=== PATIENT | female | born 1990 | race Caucasian/White ===

== ENCOUNTER 2023-02-01 21:12 | Outpatient (REF) | payer OTHER, SELFPAY ==
[2023-02-07 20:08] LABS: Age Gdln ACOG Testing Note (.); HPV Aptima Negative (Negative); IGP, Aptima HPV, rfx 16/18,45 Note (.)
== END 2023-02-01 21:13 | disposition home or self-care (01) ==
LOC: LAB 21:12
PROVIDERS: Visit Provider Physician Assistant
DX: Z12.4 Encounter for screening for malignant neoplasm of cervix (principal)
CPT/HCPCS: G0145

== ENCOUNTER 2024-01-04 20:11 | Outpatient (REF) | payer OTHER, SELFPAY | END 2024-01-04 20:12 | disposition home or self-care (01) | LOC: LAB 20:11 | PROVIDERS: Visit Provider Physician Assistant | DX: Z01.419 Encounter for gynecological examination (general) (routine) without abnormal findings (principal) | CPT/HCPCS: 87624; 88175 ==

== ENCOUNTER 2025-01-07 19:08 | Outpatient (REF) | payer OTHER, SELFPAY ==
--- OUTSIDE RECORDS SUMMARY | 2023-05-03 12:01 | XMS_ITS | Continuity of Care Document ---
Author Organization [facility] Address [address] [place] [address] Phone Care Team Providers Care Hospice Patient Care Secretary Name Role Phone Noel MSN, [employer], MARIO, Daphne Unavailable Unavailable Allergies, Adverse Reactions, Alerts Substance Reaction Status Criticality HYDROCODONE BITARTRATE HivesHives Active No In formation HYDROCODONE BITARTRATE Active No In formation Procedures Procedure Date TB INTRADERMAL TEST PREV VISIT, NEW, AGE 18-39 Bp scrn perf rec interval DIAST BP < 80 MM HG SYST BP < 130 MM HG MED LIST DOCD IN [facility] RVW MEDS BY RX/DR IN [facility] Advance Directives Directive Yes / No Effective Date File Name No Information Encounters Encounter Description Practice Location Reason(s) For Visit Diagnoses Date Provider Providers Copied on Encounter [facility], [address] [place], [place], [id number], [place] tel:[phone] [facility] No Information 3 Noel Serna. [address] [place], [address], [place]. tel:[phone] [facility], [address], [place], [id number], [place] tel:[phone] [facility] Nonspecific reaction to tuberculin skin test without active tuberculosis 3 Radha Moyer. [address], [place], [id number] , [place]. tel:[phone] PREV VISIT, NEW, AGE 18-39 [facility], [address], [place], [id number], [place] tel:[phone] [facility] School Physical (chief complaint) Encounter for general adult medical examination without abnormal findingsNeed for hepatitis C screening testScreening for diabetes mellitusScreening for endocrine disorderScreening for HIV (human immunodeficiency virus)Screening for lipid disordersBody mass index [BMI] 36.0-36.9, adult 3 Noel Serna. [address] [place], [address], [place]. tel:[phone] Family History Family Member Type Diagnosis Age At Onset Maternal grandmother Problem Thyroid disorder Father Problem Diabetes mellitus Payers Payer name Insurance type Covered democrat ID Authorrizwana emily(s) [facility] Medicaid [facility] [id number] Social History Type Description Quantity Date Captured Comments Alcohol Use Details Unknown Caffeine Use Details Unknown Tobacco Use Status No Information Smoking Status No Information Sex Female Sexual Orientation Straight or heterosexual Gender Identity Female Chief Complaint And Reason For Visit No Information Reason For Referral Reason For Referral No Information Plan Of Treatment Date Type Action Status Goal Tdap. Due on due Goal Influenza vaccine. Due on due Goal Depression screening. Due on due Goal HPV. Due on due Goal Unhealthy drug use screening . Due on due Goal Hepatitis C screening. Due o n due Goal RLP. Due on due Goal PRAPARE ASSESSMENT. Due on due Goal Tdap Vaccine. Due on 2022 due Goal Hepatitis C screening. Due o n due Goal Hep A. Due on du e Goal PRAPARE ASSESSMENT. Due on D due Goal Tdap Vaccine. Due on 2022 due Goal HPV. Due on due Goal RLP. Due on due Goal Unhealthy drug use screening . Due on due Goal Depression screening. Due on due Goal Influenza vaccine. Due on due Goal Tdap. Due on due Goal RLP. Due on due Goal PRAPARE ASSESSMENT. Due on D due Goal Hep A. Due on du e Goal HPV. Due on due Goal Tdap Vaccine. Due on 2022 due Goal Influenza vaccine. Due on due Goal Hepatitis C screening. Due o n due Goal Depression screening. Due on due Goal Tdap. Due on due Goal Unhealthy drug use screening . Due on due Goal Dietary management education , guidance, and counseling completed History Of Present Illness Encounter Date Complaint History Of Prese nt Illness School Physical Patient here for school physical. 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 Patient brought form to fill out. TB skin test step 1 administered in R forearm // ROXANA Rossi.Above noted.Patient is a 32-year-old female with unremarkable medical history. She is here today for a school physical. She typically sees Juani Phelan) for PCP but was unable to get into her office in a timely manner. She has two children (4 year old and 8 months old). 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 She states she did not keep up with the hours required to keep her GRAPHIC ARTS TECHNICIAN license so she has to go back to school to get recertified. She denies any issues or concerns today. She denies any concerns regarding completed schooling or required job duties. Surgical history: , tubal ligationFamily history: Father has diabetes. Maternal grandmother as thyroid disease./ Levy Cohen APRN-RETAIL SERVICE SPECIALIST Functional Status Date Functional Assessmen t No Information Instructions Date Instruction Additional Infor mation Giving encouragement to exercise Related to Body mass index [BMI] 36.0-36.9, adult Dietary management e ducation, guidance, and counseling Related to Body mass index [BMI] 36.0-36.9, adult Assessments Type Assessment Date No Information Patient Care Teams Name Effective Dates (start - stop) Status Members No Information
--- OUTSIDE RECORDS SUMMARY | 2025-01-07 14:00 | XMS_ITS | Encounter Summary ---
Author Organization [facility] Address [address] [place] [address] Care Team Providers Care Universal Grinder Set Up Operator Name Role Phone Unavailable Primary Care Provider Unavailabl e Reason for Visit * Reason Comments Well Women Visit Encounter Details Date Type Department Care Team (Late st Contact Info) Description 01/07/2025 2:00 PM EDT Office Visit [facility] [address] [place] [id number] Madan Jauregui DO [address] [place] [address] Well woman exam with routine gynecological exam Social History Tobacco Use Types Packs/Day Years Used Date Smoking Tobacco: Never Smokeless Tobacco: Never Alcohol Use Standard Drinks/Week Comments Not Currently 0 (1 standard drink = 0.6 oz pur e alcohol) occasional alcohol use Comments No Sex and Gender Information Value Date Recorded Sex Assigned at Not on file Legal Sex Female 11:48 PM EDT Gender Identity Not on file Sexual Orientation Not on file documented as of this encounter Last Filed Vital Signs Vital Sign Reading Time Taken Comments Blood Pressure 120/78 01/07/2025 2:06 PM EDT Pulse - - Temperature - - Respiratory Rate - - Oxygen Saturation - - Inhaled Oxygen Concentration - - Weight 93.8 kg (206 lb 12.8 oz) 01/07/2025 2:06 PM EDT Height - - Body Mass Index 36.63 01/04/2024 3:08 PM EDT documented in this encounter Progress Notes * Neelam Vázquez LPN - 01/07/2025 2:00 PM EDT Reason for Appointment: Patient ID: Andrea Triana is a 34 y.o. female who presents for Well Women Visit Patient presents today for Annual Exam. MEDICATIONS No current outpatient medications ALLERGIES Allergies Allergen Reactions Hydrocodone-Acetaminophen Hives Other Reaction(s): Hives, Unknown PROBLEMS Active Ambulatory Problems Diagnosis Date Noted No Active Ambulatory Problems Resolved Ambulatory Problems Diagnosis Date Noted No Resolved Ambulatory Problems Past Medical History: Diagnosis Date Nonsmoker PCOS (polycystic ovarian syndrome) HISTORY PAST MEDICAL HISTORY SOCIAL HISTORY Past Medical History: Diagnosis Date Nonsmoker PCOS (polycystic ovarian syndrome) Social History Tobacco Use Smoking status: Never Smokeless tobacco: Never Substance Use Topics Alcohol use: Not Currently Comment: occasional alcohol use Drug use: Never FAMILY HISTORY Family History Problem Relation Name Age of Onset Psoriasis Other Family history SURGICAL HISTORY Past Surgical History: Procedure Laterality Date SECTION, LOW TRANSVERSE 07/20/2022 PAP SMEAR 10/28/2021 negative SALPINGECTOMY Bilateral 07/20/2022 REVIEW OF SYSTEMS Review of Systems: Review of Systems Constitutional: Negative. HENT: Negative. Eyes: Negative. Respiratory: Negative. Cardiovascular: Negative. Gastrointestinal: Negative. Genitourinary: Negative. Musculoskeletal: Negative. Skin: Negative. Neurological: Negative. All other systems reviewed and are negative. Hematological: Negative. Endocrine: Negative. Allergic/Immunologic: Negative. OBJECTIVE Objective: Physical Exam Constitutional: Appearance: Normal appearance. She is well-developed. Genitourinary: Vulva normal. Cardiovascular: Rate and Rhythm: Normal rate and regular rhythm. Pulmonary: Effort: Pulmonary effort is normal. Breath sounds: Normal breath sounds. Abdominal: General: Bowel sounds are normal. There is no distension. Palpations: Abdomen is soft. Tenderness: There is no abdominal tenderness. There is no guarding or rebound. Musculoskeletal: General: No swelling. Normal range of motion. Right lower leg: No edema. Left lower leg: No edema. Neurological: Mental Status: She is alert and oriented to person, place, and time. Skin: General: Skin is warm and dry. Psychiatric: Mood and Affect: Mood normal. Behavior: Behavior normal. Vitals and nursing note reviewed. Exam conducted with a logging equipment mechanic present. Vitals: Estimated body mass index is 36.63 kg/m?? as calculated from the following: Height as of 01/04/24: 5' 3 . Weight as of this encounter: 206 lb 12.8 oz. BP: 120/78 Patient's last menstrual period was 12/29/2024. ASSESSMENT & PLAN ICD-10-CM 1. Well woman exam with routine gynecological exam Z01.419 Pap Smear HPV DNA probe, amplified Orders Placed This Encounter Procedures HPV DNA probe, amplified Annual Wellness Exam: Patient presents today for routine annual exam. Patient states she has no current complaints. Patients vitals were reviewed and within normal limits. Growth and development is noted to be appropriate for age. Menstrual history is noted to be regular with no concerns reported. No mental health concerns was expressed. Pap Smear: Speculum was inserted into the vagina and pap was obtained without difficulty. HPV testing was performed per age guideline. Patient was advised that pap results could take anywhere from 7 to 10 days to receive and our office will reach out to the patient with those once we have them. Patient can also view results via [employer]. I reinforced importance of condom use for STI prevention. Patient declined cultures to be performed with today's visit. Breast Exam: Upon examination, clinical breast exam was noted to be normal. Patient was counseled on breast self-awareness, including the importance of knowing what is normal for her own breasts and promptly reporting any changes such as new lumps, skin dimpling, nipple discharge, or pain. Screening mammogram recommended annually beginning at age 40 or earlier if risk factors are present. Discussed signs and symptoms of breast cancer and when to seek medical attention. Answered all patient questions. Contraceptive Counseling (if applicable): Patient is currently using tubal as a form of contraceptive. Follow Up: Patient is to return to our office in one year for annual exam unless needed otherwise. Documented by Neelam Vázquez LPN on behalf of: Madan Jauregui DO documented in this encounter Plan of Treatment Upcoming Encounters Date Type Department Care Team (Late st Contact Info) Description 01/13/2026 8:30 AM EDT Procedure Visit [facility] [address] [place] [id number] Madan Jauregui DO [address] [place] [address] Scheduled Orders Name Type Priority Associated Diagnoses Orde r Schedule Pap Smear Pathology and Cytology Routine Well woman exam with routine gynecological exam Ordered: 01/07/2025 HPV DNA probe, amplified Microbiology Routine Well woman exam with routine gynecological exam Ordered: 01/07/2025 documented as of this encounter Visit Diagnoses Diagnosis Well woman exam with routine gynecological exam Routine gynecological examination documented in this encounter
--- OUTSIDE RECORDS SUMMARY | 2025-01-07 19:11 | XMS_ITS | Encounter Summary ---
Author Organization [facility] Address [address] [place] [address] Care Team Providers Care Scout Sniper Name Role Phone Unavailable Primary Care Provider Unavailabl e Encounter Details Date Type Department Care Team (Late Contact Info) Description 01/07/2025 Bamboo flowsheet [facility] [address] [place] [address] Madan Jauregui DO [address], [place] [address] Social History Tobacco Use Types Packs/Day Years [...] on file documented as of this encounter Plan of Treatment Upcoming Encounters Date Type Department Care Team (Late Contact Info) Description 01/13/2026 8:30 AM EDT Procedure Visit [facility] [address] [place] [address] Madan Jauregui DO [address], [id number] documented as of this encounter Visit Diagnoses Not on filedocumented in this encounter
--- OUTSIDE RECORDS SUMMARY | 2025-01-07 19:11 | XMS_ITS | Encounter Summary ---
Author Organization [facility] Address [address] [place] [address] Care Team Providers Care Carpet Cutter Name Role Phone Unavailable Primary Care Provider Unavailabl e Encounter Details Date Type Department Care Team (Late Contact Info) Description 12/31/2024 Orders Only [facility] [address] [place] [phone] Mary Crews LPN [address] [facility] [place] [address] Social History Tobacco Use Types Packs/Day Years [...] 8:30 AM EDT Procedure Visit [facility] [address] [place] [address] Madan Jauregui DO [address] [facility] [address] [place], [place] [id number] documented as of this encounter Procedures Procedure Name Priority Date/Time Associated Diagnosis Comments PAP SMEAR Routine 01/04/2024 12:00 AM EDT documented in this encounter Results * (ABNORMAL) Pap Smear (01/04/2024 12:00 AM EDT) Swab Cervical swab / Unknown us [facility] CYTOLOGY ORDERABLES Final Result EXTERNAL LAB documented in this encounter Visit Diagnoses Not on filedocumented in this encounter
--- OUTSIDE RECORDS SUMMARY | 2025-01-07 19:11 | XMS_ITS | Encounter Summary ---
Author Organization [facility] Address [address] [place] [address] Care Team Providers Care Store Administrative Assistant Name Role Phone Unavailable Primary Care Provider Unavailabl e Encounter Details Date Type Department Care Team (Late Contact Info) Description 01/31/2023 Abstract [facility] [address] [phone] Lucero Pollack PA [address] [facility] [address] [place], [facility] Social History Tobacco Use Types Packs/Day Years Used Date Smoking Tobacco: Never Smokeless Tobacco: Never Alcohol Use Standard Drinks/Week Comments Yes 0 (1 standard drink = 0.6 oz pur e alcohol) occasional alcohol use Comments Unknown Sex and Gender Information Value Date Recorded Sex Assigned at Not on file Legal Sex Female 11:48 PM EDT Gender Identity Not on file Sexual Orientation Not on file documented as of this encounter Plan of Treatment Upcoming Encounters Date Type Department Care Team (Late Contact Info) Description 01/13/2026 8:30 AM EDT Procedure Visit [facility] [address] [address] Madan Jauregui DO [address] [facility] [address] [place], [place] [id number] documented as of this encounter Visit Diagnoses Not on filedocumented in this encounter
--- OUTSIDE RECORDS SUMMARY | 2025-01-07 19:11 | XMS_ITS | Clinical Summary ---
Author Organization [facility] Address [address] [place] [address] Care Team Providers Care Associate Media Planner Name Role Phone Unavailable Primary Care Provider Unavailabl e Allergies Active Allergy Reactions Criticality Noted Date Comments Hydrocodone-Acetaminophen Hives 02/01/2023 Other Reaction(s): Hives, Unknown Medications No known medications Encounters Date Type Department Care Team Description 01/07/2025 2:00 PM EDT Office Visit [facility] [address] [place], [phone] Madan Jauregui, Well woman exam with routine gynecological exam 01/07/2025 Bamboo flowsheet [facility] [place] [address] Madan Jauregui DO 12/31/2024 Orders Only [facility] [address] [place], [place] [address] [place] [address] Mary Crews LPN from Last 3 Months Family History Medical History Relation Name Comments Psoriasis Other Family history Relation Name Status Comments Brother (2) Father Alive Mother Alive Other Family history Sister (3) Social History Tobacco Use Types Packs/Day Years Used Date Smoking Tobacco: Never Smokeless Tobacco: Never Tobacco Cessation:Counseling Given: Not Answered Alcohol Use Standard Drinks/Week Comments Not Currently 0 (1 standard drink = 0.6 oz pur e alcohol) occasional alcohol use Comments No Sex and Gender Information Value Date Recorded Sex Assigned at Not on file Legal Sex Female 11:48 PM EDT Gender Identity Not on file Sexual Orientation Not on file Last Filed Vital Signs Vital Sign Reading Time Taken Comments Blood Pressure 120/78 01/07/2025 2:06 PM EDT Pulse - - Temperature - - Respiratory Rate - - Oxygen Saturation - - Inhaled Oxygen Concentration - - Weight 93.8 kg (206 lb 12.8 oz) 01/07/2025 2:06 PM EDT Height 160 cm (5' 3 ) 01/04/2024 3:08 PM EDT Body Mass Index 36.63 01/04/2024 3:08 PM EDT Plan of Treatment Upcoming Encounters Date Type Department Care Team (Late st Contact Info) Description 01/13/2026 8:30 AM EDT Procedure Visit [facility] [address] [place] [address] Madan Jauregui DO [address] [place] [address] Insurance [employer]
--- OUTSIDE RECORDS SUMMARY | 2025-01-07 19:17 | XMS_ITS | CCD ---
Author Organization [facility] Care Team Providers Care Engineering Clerk Name Role Phone Paul Thornton Unavailable CLEMENCIA ., LUCERO Attending Unavailable CLEMENCIA ., LUCERO Admitting Unavailable HOPKINS ., DR DMITRIY Walden Primary Care Unavailable HOPKINS ., DR DMITRIY Walden Primary Care Unavailable REINECK, DR MIKE [place] Consulting Unavailabl e TASNEEM, DR MIKE [place] Admitting Unavailabl e REINJEZ, DR MIKE [place] Attending Unavailabl ABHINAV Browne Consulting Unavailable BENNY BRYAN Consulting Unavailable HOPKINS ., DR DMITRIY Walden Primary Care Unavailable JUVENTINO ., DR LUNDBERG Consulting Unavailable JUVENTINO ., DR LUNDBERG Attending Unavailable JUVENTINO ., DR LUNDBERG Admitting Unavailable JUVENTINO ., DR LUNDBERG Procedure Practitioner Unavail ROSA Benitez Consulting Unavailable SHADY TIAN Consulting Unavailable JUVENTINO ., DR LUNDBERG Consulting Unavailable JUVENTINO ., DR LUNDBERG Admitting Unavailable HOPKINS ., DR DMITRIY Walden Primary Care Unavailable JUVENTINO ., DR LUNDBERG Attending Unavailable CLEMENCIA ., LUCERO Attending Unavailable CLEMENCIA ., LUCERO Admitting Unavailable HOPKINS ., DR DMITRIY Walden Primary Care Unavailable DINA ONOFRE V Consulting Unavailable CLEMENCIA ., LUCERO Consulting Unavailable HOPKINS ., DR DMITRIY Walden Primary Care Unavailable JUVENTINO ., DR LUNDBERG Attending Unavailable JUVENTINO ., DR LUNDBERG Admitting Unavailable JUVENTINO ., DR LUNDBERG Admitting Unavailable HOPKINS ., DR DMITRIY Walden Primary Care Unavailable JUVENTINO ., DR LUNDBERG Attending Unavailable JUVENTINO ., DR LUNDBERG Consulting Unavailable JUVENTINO ., DR LUNDBERG Admitting Unavailable JUVENTINO ., DR LUNDBERG Attending Unavailable HOPKINS ., DR DMITRIY Walden Primary Care Unavailable HOPKINS ., DR DMITRIY Walden Primary Care Unavailable JUVENTINO ., DR LUNDBERG Attending Unavailable JUVENTINO ., DR LUNDBERG Admitting Unavailable WEST, DINA Curran Consulting Unavailable JUVENTINO ., DR LUNDBERG Consulting Unavailable CLEMENCIA ., LUCERO Consulting Unavailable CLEMENCIA ., LUCERO Admitting Unavailable CLEMENCIA ., LUCERO Attending Unavailable HOPKINS ., DR DMITRIY Walden Primary Care Unavailable JUVENTINO ., DR LUNDBERG Attending Unavailable JUVENTINO ., DR LUNDBERG Consulting Unavailable JUVENTINO ., DR LUNDBERG Admitting Unavailable HOPKINS ., DR DMITRIY Walden Primary Care Unavailable HOPKINS ., DR DMITRIY Walden Primary Care Unavailable JUVENTINO ., DR LUNDBERG Consulting Unavailable JUVENTINO ., DR LUNDBERG Admitting Unavailable JUVENTINO ., DR LUNDBERG Attending Unavailable HOPKINS ., DR DMITRIY Walden Primary Care Unavailable JUVENTINO ., DR LUNDBERG Attending Unavailable JUVENTINO ., DR LUNDBERG Admitting Unavailable WESTDINA V Consulting Unavailable JUVENTINO ., DR LUNDBERG Consulting Unavailable HOPKINS ., DR DMITRIY Walden Primary Care Unavailable JUVENTINO ., DR LUNDBERG Attending Unavailable JUVENTINO ., DR LUNDBERG Consulting Unavailable JUVENTINO ., DR LUNDBERG Admitting Unavailable MORGAN, ROSA Admitting Unavailable MORGANROSA Attending Unavailable HOPKINS ., DR DMITRIY Walden Primary Care Unavailable MORGANROSA Consulting Unavailable HOPKINS ., DR DMITRIY Walden Primary Care Unavailable JUVENTINO ., DR LUNDBERG Attending Unavailable JUVENTINO ., DR LUNDBERG Consulting Unavailable JUVENTINO ., DR LUNDBERG Admitting Unavailable JUVENTINO ., DR LUNDBERG Consulting Unavailable JUVENTINO ., DR LUNDBERG Admitting Unavailable JUVENTINO ., DR LUNDBERG Attending Unavailable HOPKINS ., DR DMITRIY Walden Primary Care Unavailable HOPKINS ., DR DMITRIY Walden Primary Care Unavailable JUVENTINO ., DR LUNDBERG Attending Unavailable JUVENTINO ., DR LUNDBERG Consulting Unavailable JUVENTINO ., DR LUNDBERG Admitting Unavailable JUVENTINO ., DR LUNDBERG Admitting Unavailable HOPKINS ., DR DMITRIY Walden Primary Care Unavailable JUVENTINO ., DR LUNDBERG Attending Unavailable DINA ONOFRE V Consulting Unavailable JUVENTINO ., DR LUNDBERG Consulting Unavailable HOPKINS ., DR DMITRIY Walden Primary Care Unavailable JUVENTINO ., DR ULNDBERG Attending Unavailable JUVENTINO ., DR LUNDBERG Admitting Unavailable DINA ONOFRE V Consulting Unavailable JUVENTINO ., DR LUNDBERG Consulting Unavailable HOPKINS ., DR DMITRIY Walden Primary Care Unavailable JUVENTINO ., DR LUNDBERG Attending Unavailable JUVENTINO ., DR LUNDBERG Consulting Unavailable JUVENTINO ., DR LUNDBERG Admitting Unavailable HOPKINS ., DR DMITRIY Walden Primary Care Unavailable JUVENTINO ., DR LUNDBERG Attending Unavailable JUVENTINO ., DR LUNDBERG Consulting Unavailable JUVENTINO ., DR LUNDBERG Admitting Unavailable JUVENTINO ., DR LUNDBERG Consulting Unavailable HOPKINS ., DR DMITRIY Walden Primary Care Unavailable JUVENTINO ., DR LUNDBERG Attending Unavailable JUVENTINO ., DR LUNDBERG Admitting Unavailable SAIRA ERICKSON Consulting Unavailable JUVENTINO ., DR LUNDBERG Admitting Unavailable DINA ONOFRE V Consulting Unavailable JUVENTINO ., DR LUNDBERG Attending Unavailable HOPKINS ., DR DMITRIY Walden Primary Care Unavailable JUVENTINO ., DR LUNDBERG Consulting Unavailable Cisco, Juani L Primary Care Physician LUCERO KHANNA Attending Unavailable Unavailable Primary Care Provider Unavailabl e Cisco, MANAGER GENERAL Juani L Attending Unavailable Cisco, MANAGER GENERAL Juani L Attending Unavailable Cisco, MANAGER GENERAL Juani L Attending Unavailable Cisco, MANAGER GENERAL Juani L Attending Unavailable Cisco, MANAGER GENERAL Juani L Attending Unavailable Allergies Allergy Classification Reported Allergen(s) Allergy Type Date of Onset Reaction(s) Facility (5 sources) Acetaminophen / HYDROcodone; Translations: [Vicodin] Drug Allergy 5 Weal (disorder) [facility] Medications Current Medications Medication Drug Class(es) Dates Sig (Normalized) Sig (Original) benzonatate 100 mg oral capsule (1 source) Non-narcotic Antitussive Start: 12-27-2022 End: 01-03-2023 take 1 capsule by mouth three times daily Tessalon 100 mg Cap 100 mg = 1 cap(s), Oral, TID, X 7 day(s), # 21 cap(s), Refills(s) 0, Pharmacy: [facility], 160, cm, 12/27/22 12:16:00 EDT, Height/Length Dosing, 91, kg, 12/27/22 12:16:00 EDT, Weight Dosing Start Date: 12/27/22 Stop Date: 01/03/23 Status: Ordered predniSONE 20 mg oral tablet (1 source) Start: 12-27-2022 End: 01-03-2023 take 1 tablet by mouth once daily predniSONE 20 mg Tab 20 mg = 1 tab(s), Oral, Daily, X 7 day(s), # 7 tab(s), Refills(s) 0, Pharmacy: [facility], 160, cm, 12/27/22 12:16:00 EDT, Height/Length Dosing, 91, kg, 12/27/22 12:16:00 EDT, Weight Dosing Start Date: 12/27/22 Stop Date: 01/03/23 Status: Ordered Problems Active Problems Problem Classification Problem Date Documented Date Episodic/Chronic Chronic obstructive pulmonary disease and bronchiectasis (1 source) Bronchitis; Translations: [Bronchitis, not specified as acute or chronic] Onset: 12-27-2022 Episodic Contraceptive and procreative management (1 source) Encounter for sterilization; Translations: [ENCOUNTER FOR STERILIZATION] Onset: 08-08-2022 Episodic Diabetes or abnormal glucose tolerance complicating ; childbirth; or the puerperium (1 source) Pre-existing type 2 diabetes mellitus, in , unspecified trimester; Translations: [PRE-EXIST TYPE 2 DM PREG UNS TRI] Onset: 07-13-2022 Chronic Diabetes or abnormal glucose tolerance complicating ; childbirth; or the puerperium (7 sources) Gestational diabetes mellitus in , diet controlled; Translations: [Gestational diabetes mellitus in childbirth, diet controlled] Onset: 07-15-2022 Episodic Immunizations and screening for infectious disease (6 sources) Contact with and (suspected) exposure to infections with a predominantly sexual mode of transmission; Translations: [Encounter for screening for human papillomavirus (HPV)] Onset: 10-30-2021 Episodic Menstrual disorders (5 sources) Irregular menstruation, unspecified; Translations: [IRREGULAR MENSTRUATION UNSPECIFIED] Onset: 12-20-2021 Chronic Other complications of (4 sources) Other specified related conditions, unspecified trimester; Translations: [OTH SPEC PREG RELATED COND UNS TRI] Onset: 07-11-2022 Episodic Other female genital disorders (1 source) Other specified noninflammatory disorders of vagina; Translations: [OTH SPEC NONINFLAMMATORY D/O VAGINA] Onset: 07-14-2022 Episodic Other liver diseases (2 sources) Steatosis of liver; Translations: [Fatty (change of) liver, not elsewhere classified] Chronic Other liver diseases (2 sources) Fatty (change of) liver, not elsewhere classified; Translations: [FATTY CHANGE LIVER NEC] Onset: 11-18-2021 Resolved: 11-18-2021 Chronic Other nutritional; endocrine; and metabolic disorders (1 source) Obese class II; Translations: [Body mass index (BMI) 35.0-35.9, adult] Onset: 12-27-2022 Chronic Other and delivery including normal (10 sources) Single live ; Translations: [ state, incidental] Onset: 12-31-2021 Episodic Residual codes; unclassified (1 source) Personal history of other specified conditions; Translations: [PERSONAL HISTORY OTH SPEC CONDITION] Onset: 08-08-2022 Episodic Residual codes; unclassified (1 source) 37 weeks gestation of ; Translations: [37 WEEKS GESTATION OF ] Onset: 08-08-2022 Episodic Residual codes; unclassified (1 source) 36 weeks gestation of ; Translations: [36 WEEKS GESTATION OF ] Onset: 07-15-2022 Episodic Unclassified (1 source) PT NONCOMP OTH MED TX/REG UNS REASN; Translations: [PT NONCOMP OTH MED TX/REG UNS REASN] Onset: 08-08-2022 Past or Other Problems Problem Classification Problem Date Documented Da te Episodic/Chronic Abdominal pain (1 source) Unspecified abdominal pain Onset: 11-18-2021 Resolved: 11-18-2021 Episodic Diabetes mellitus without complication (8 sources) Other abnormal glucose; Translations: [Acetonuria] Onset: 02-19-2022 Episodic Hemorrhage during ; abruptio placenta; placenta previa (4 sources) Hemorrhage in early , unspecified; Translations: [HEMORRHAGE EARLY UNS] Onset: 02-08-2022 Episodic Nausea and vomiting (1 source) Nausea Onset: 11-18-2021 Resolved: 11-18-2021 Episodic Other complications of (4 sources) Decreased movements, third trimester, not applicable or unspecified; Translations: [DECR MOVEMENTS 3RD TRI NA/UNS] Onset: 06-28-2022 Episodic Other complications of (1 source) Diseases of the digestive system complicating , first trimester; Translations: [DZ DIGESTIVE SYS COMP PREG 1ST TRI] Onset: 03-16-2022 Episodic Other screening for suspected conditions (not mental disorders or infectious disease) (13 sources) Encounter for other specified screening; Translations: [Encounter for screening, unspecified] Onset: 10-28-2021 Episodic Residual codes; unclassified (1 source) 34 weeks gestation of ; Translations: [34 WEEKS GESTATION OF ] Onset: 07-01-2022 Episodic Residual codes; unclassified (1 source) 8 weeks gestation of ; Translations: [8 WEEKS GESTATION OF ] Onset: 12-31-2021 Episodic Results Test Name Value Interpretation Reference Range Facility [facility] Medicine Office/Clini c Noteon 10-07-2024 [facility] Medicine Office/Clinic Note [facility] Medicine Office/Clinic Note HPI Staff Patient is here for sore throat started yesterday, when she swallows she feels like she is swallowing glass No fever coughing yellowish green mucous OTC tried Ibuprofen, cough drops... cough drops helped History of Present Illness pt presents today with severe sore throat Review of Systems PHQ Score Initial Depression Screen Score: 0 SCORE Physical Exam Vitals & Measurements T: 36.7 ???C(Oral) HR: 104(Peripheral) RR: 20 BP: 116/78 SpO2: 98% HT: 159.0 cm HT: 63 in WT: 90.8 kg WT: 200.179 lb BMI: 35.92 General: alert, no acute distress ENMT: oral mucosa moist, yes pharyngeal erythema or exudate Cardiovascular: regular rate and rhythm, normal peripheral perfusion Respiratory: Lungs CTA, respirations non labored Extremities: no deformity, no trauma Neurological: oriented x 4, LOC appropriate for age, CN II-XII intact, motor strength equal & normal bilaterally, speech normal Assessment/Plan 1. Strep pharyngitis (J02.0: Streptococcal pharyngitis) rapid strep positive in office today. will send in antibiotics. pt will remain off of work until Monday. take Motrin for the pain. Ordered: amoxicillin, 500 mg = 1 tab(s), Oral, TID, X 7 day(s), # 21 tab(s), Refills(s) 0, Pharmacy: [facility], 159, cm, 10/07/24 14:07:00 EDT, Height/Length Dosing, 90.8, kg, 10/07/24 14:07:00 EDT, Weight Dosing 2. Sore throat (J02.9: Acute pharyngitis, unspecified) rapid strep in office is + Ordered: amoxicillin, 500 mg = 1 tab(s), Oral, TID, X 7 day(s), # 21 tab(s), Refills(s) 0, Pharmacy: [facility], 159, cm, 10/07/24 14:07:00 EDT, Height/Length Dosing, 90.8, kg, 10/07/24 14:07:00 EDT, Weight Dosing Rapid Strep POC 53896 3. Non-smoker (Z78.9: Other specified health status) continue not smokiing Ordered: amoxicillin, 500 mg = 1 tab(s), Oral, TID, X 7 day(s), # 21 tab(s), Refills(s) 0, Pharmacy: [facility], 159, cm, 10/07/24 14:07:00 EDT, Height/Length Dosing, 90.8, kg, 10/07/24 14:07:00 EDT, Weight Dosing 4. BMI 35.0-35.9,adult (Z68.35: Body mass index [BMI] 35.0-35.9, adult) BMI education Ordered: amoxicillin, 500 mg = 1 tab(s), Oral, TID, X 7 day(s), # 21 tab(s), Refills(s) 0, Pharmacy: [facility], 159, cm, 10/07/24 14:07:00 EDT, Height/Length Dosing, 90.8, kg, 10/07/24 14:07:00 EDT, Weight Dosing 5. Class 2 severe obesity due to excess calories with serious comorbidity and body mass index (BMI) of 35.0 to 35.9 in adult (E66.812: Obesity, class 2) see above Ordered: amoxicillin, 500 mg = 1 tab(s), Oral, TID, X 7 day(s), # 21 tab(s), Refills(s) 0, Pharmacy: [facility], 159, cm, 10/07/24 14:07:00 EDT, Height/Length Dosing, 90.8, kg, 10/07/24 14:07:00 EDT, Weight Dosing Follow-up No qualifying data available Problem List/Past Medical History Ongoing Adult BMI 36.0-36.9 kg/sq m BMI 35.0-35.9,adult Cerumen impaction Encounter for weight management Encounter to establish care Nonsmoker Obesity (BMI 30-39.9) PCOS (polycystic ovarian syndrome) Pre-employment examination Sensation of plugged ear on right side Sore throat Strep pharyngitis Weight gain Wellness examination Historical No qualifying data Procedure/Surgical History delivery, Salpingectomy. Medications amoxicillin 500 mg oral tablet, 500 mg= 1 tab(s), Oral, TID Allergies Vicodin (Hives) Social History Alcohol Never., 09/25/2024 Substance Abuse Never., 09/25/2024 Tobacco Never (less than 100 in lifetime) Tobacco Use:. Never Smokeless Tobacco Use:. Household tobacco concerns: No. Yes, 10/07/2024 Family History Acute myocardial infarction: Grandparent. Primary malignant neoplasm of colon: Father and Grandparent. Immunizations Vaccine Date Status Comments influenza virus vaccine, inactivated 05/12/2023 Given SARS-CoV-2 mRNA (tozinameran 5y-11y) vac - Not Given Postpone due to refusal influenza virus vaccine, inactivated 06/01/2022 Recorded influenza virus vaccine, inactivated 03/24/2022 Recorded Lab Results Ambulatory Point of Care Results Rapid Strep POC Result: Positive (10/07/24 14:18:00) [facility] Comment on above: Result Comment: Elec tronically Signed By: Juani Guerrier\.br\Date and Time Signed: 10/07/24 14:33 EDT Provider Letteron 10-07-2024 Provider Letter Provider Letter October 07, 2024 KAL TRIANA [address] [place] [id number] : 1990 To Whom It May Concern, Please excuse above patient from work. Date of Illness: From: 10/07/2024 To: 10/08/2024 May Return to Work On: 10/09/2024 Sincerely, FRANKI Terry [address] [address] [facility] Ambulatory Visit Summaryon 0 09-25-2024 Ambulatory Visit Summary Ambulatory Visit Summary KAL TRIANA :1990 Visit Date:09/25/2024 Ambulatory Visit Instructions Your Diagnosis Sensation of plugged ear on right side Cerumen impaction BMI 35.0-35.9,adult Obesity (BMI 30-39.9) Nonsmoker Your Care Team Attending Physician - Juani Guerrier Primary Care Physician - Juani Guerrier Procedures Performed delivery, Salpingectomy. Discharge Vitals Temperature (Tympanic) 36.9 ???C Heart Rate (Peripheral) 90 Respiratory Rate 18 Blood Pressure 124/82 Height 159 cm Height 63 in Weight 90.9 kg Weight 200.4 lb BMI 35.96 What to do next Scheduled Follow-Up Appointments Monday. 2024 1:40 PM EDT Where: [address] [address]- Allergies Vicodin (Hives) Problems Ongoing - Any problem that you are currently receiving treatment for. Adult BMI 36.0-36.9 kg/sq m BMI 35.0-35.9,adult Cerumen impaction Encounter for weight management Encounter to establish care Nonsmoker Obesity (BMI 30-39.9) PCOS (polycystic ovarian syndrome) Pre-employment examination Sensation of plugged ear on right side Sore throat Strep pharyngitis Weight gain Wellness examination Patient Survey You may receive a survey via text or e-mail asking about your office visit. Please share your experience with us by completing your survey. We appreciate your feedback and thank you for choosing us for your care. [facility] Medicine Office/Clini c Noteon 09-25-2024 Family Medicine Office/Clinic Note Family Medicine Office/Clinic Note Chief Complaint Acute Visit HPI Staff Pt presents today for acute visit. Rt ear feels plugged, at times painful. Usually after laying on her side, or any kind of pressure to Rt ear. Has been intermittent for the past 2wks. Review of Systems PHQ Score Initial Depression Screen Score: 0 SCORE Physical Exam Vitals & Measurements T: 36.9 ???C(Tympanic) HR: 90(Peripheral) RR: 18 BP: 124/82 SpO2: 97% HT: 159 cm HT: 63 in WT: 90.9 kg WT: 200.4 lb BMI: 35.96 Assessment/Plan 1. Sensation of plugged ear on right side (H93.8X1: Other specified disorders of right ear) 2. Cerumen impaction (H61.20: Impacted cerumen, unspecified ear) 3. BMI 35.0-35.9,adult (Z68.35: Body mass index [BMI] 35.0-35.9, adult) 4. Obesity (BMI 30-39.9) (E66.9: Obesity, unspecified) 5. Nonsmoker (Z78.9: Other specified health status) Orders: phentermine, 37.5 mg = 1 tab(s), Oral, Daily, bmi 34.1, # 30 tab(s), Refills(s) 0, Pharmacy: [facility], 159, cm, 01/04/24 8:43:00 EDT, Height/Length Dosing, 77.8, kg, 01/04/24 8:43:00 EDT, Weight Dosing Follow-up No qualifying data available Problem List/Past Medical History Ongoing Adult BMI 36.0-36.9 kg/sq m BMI 35.0-35.9,adult Cerumen impaction Encounter for weight management Encounter to establish care Nonsmoker Obesity (BMI 30-39.9) PCOS (polycystic ovarian syndrome) Pre-employment examination Sensation of plugged ear on right side Sore throat Strep pharyngitis Weight gain Wellness examination Historical No qualifying data Procedure/Surgical History delivery, Salpingectomy. Medications No active medications Allergies Vicodin (Hives) Social History Alcohol Never., 09/25/2024 Substance Abuse Never., 09/25/2024 Tobacco Never (less than 100 in lifetime) Tobacco Use:. Never Smokeless Tobacco Use:. Household tobacco concerns: No. Yes, 09/25/2024 Family History Acute myocardial infarction: Grandparent. Primary malignant neoplasm of colon: Father and Grandparent. Immunizations Vaccine Date Status Comments influenza virus vaccine, inactivated 05/12/2023 Given SARS-CoV-2 mRNA (tozinameran 5y-11y) vac - Not Given Postpone due to refusal influenza virus vaccine, inactivated 06/01/2022 Recorded influenza virus vaccine, inactivated 03/24/2022 Recorded [facility] Comment on above: Result Comment: Elec tronically Signed By: Juani Guerrier\.elias\Date and Time Signed: 09/25/24 14:42 EDT Family Medicine Office/Clinic Note Family Medicine Office/Clinic Note Chief Complaint Acute Visit HPI Staff Pt presents today for acute visit. Rt ear feels plugged, at times painful. Usually after laying on her side, or any kind of pressure to Rt ear. Has been intermittent for the past 2wks. History of Present Illness pt presents today with c/o feeling like her right ear is plugged Review of Systems PHQ Score Initial Depression Screen Score: 0 SCORE Physical Exam Vitals & Measurements T: 36.9 ???C(Tympanic) HR: 90(Peripheral) RR: 18 BP: 124/82 SpO2: 97% HT: 159 cm HT: 63 in WT: 90.9 kg WT: 200.4 lb BMI: 35.96 General: alert, no acute distress ENMT: oral mucosa moist, no pharyngeal erythema or exudate, right canal is completely impacted with cerumen Cardiovascular: regular rate and rhythm, normal peripheral perfusion Respiratory: Lungs CTA, respirations non labored Extremities: no deformity, no trauma Neurological: oriented x 4, LOC appropriate for age, CN II-XII intact, motor strength equal & normal bilaterally, speech normal Assessment/Plan 1. Sensation of plugged ear on right side (H93.8X1: Other specified disorders of right ear) pt c/o feeling like her right ear is plugged 2. Cerumen impaction (H61.20: Impacted cerumen, unspecified ear) right ear canal is impacted with cerumen. pt will use Debrox for 7-10 days then return for nurse visit for irrigation. 3. BMI 35.0-35.9,adult (Z68.35: Body mass index [BMI] 35.0-35.9, adult) BMI education gvien 4. Obesity (BMI 30-39.9) (E66.9: Obesity, unspecified) see above 5. Nonsmoker (Z78.9: Other specified health status) continue not smoking Orders: phentermine, 37.5 mg = 1 tab(s), Oral, Daily, bmi 34.1, # 30 tab(s), Refills(s) 0, Pharmacy: [facility], 159, cm, 08/15/24 8:43:00 EDT, Height/Length Dosing, 77.8, kg, 01/04/24 8:43:00 EDT, Weight Dosing Follow-up No qualifying data available Problem List/Past Medical History Ongoing Adult BMI 36.0-36.9 kg/sq m BMI 35.0-35.9,adult Cerumen impaction Encounter for weight management Encounter to establish care Nonsmoker Obesity (BMI 30-39.9) PCOS (polycystic ovarian syndrome) Pre-employment examination Sensation of plugged ear on right side Sore throat Strep pharyngitis Weight gain Wellness examination Historical No qualifying data Procedure/Surgical History delivery, Salpingectomy. Medications No active medications Allergies Vicodin (Hives) Social History Alcohol Never., 09/25/2024 Substance Abuse Never., 09/25/2024 Tobacco Never (less than 100 in lifetime) Tobacco Use:. Never Smokeless Tobacco Use:. Household tobacco concerns: No. Yes, 09/25/2024 Family History Acute myocardial infarction: Grandparent. Primary malignant neoplasm of colon: Father and Grandparent. Immunizations Vaccine Date Status Comments influenza virus vaccine, inactivated 05/12/2023 Given SARS-CoV-2 mRNA (tozinameran 5y-11y) vac - Not Given Postpone due to refusal influenza virus vaccine, inactivated 06/01/2022 Recorded influenza virus vaccine, inactivated 03/24/2022 Recorded [facility] Comment on above: Result Comment: Elec tronically Signed By: Juani Guerrier\.elias\Date and Time Signed: 09/25/24 14:42 EDT Family Medicine Office/Clinic Note Family Medicine Office/Clinic Note Chief Complaint Acute Visit HPI Staff Pt presents today for acute visit. Rt ear feels plugged, at times painful. Usually after laying on her side, or any kind of pressure to Rt ear. Has been intermittent for the past 2wks. Review of Systems PHQ Score Initial Depression Screen Score: 0 SCORE Physical Exam Vitals & Measurements T: 36.9 ???C(Tympanic) HR: 90(Peripheral) RR: 18 BP: 124/82 SpO2: 97% HT: 159 cm HT: 63 in WT: 90.9 kg WT: 200.4 lb BMI: 35.96 Assessment/Plan 1. Sensation of plugged ear on right side (H93.8X1: Other specified disorders of right ear) 2. Cerumen impaction (H61.20: Impacted cerumen, unspecified ear) 3. BMI 35.0-35.9,adult (Z68.35: Body mass index [BMI] 35.0-35.9, adult) 4. Obesity (BMI 30-39.9) (E66.9: Obesity, unspecified) 5. Nonsmoker (Z78.9: Other specified health status) Orders: phentermine, 37.5 mg = 1 tab(s), Oral, Daily, bmi 34.1, # 30 tab(s), Refills(s) 0, Pharmacy: [facility], 159, cm, 01/04/24 8:43:00 EDT, Height/Length Dosing, 77.8, kg, 01/04/24 8:43:00 EDT, Weight Dosing Follow-up No qualifying data available Problem List/Past Medical History Ongoing Adult BMI 36.0-36.9 kg/sq m BMI 35.0-35.9,adult Cerumen impaction Encounter for weight management Encounter to establish care Nonsmoker Obesity (BMI 30-39.9) PCOS (polycystic ovarian syndrome) Pre-employment examination Sensation of plugged ear on right side Sore throat Strep pharyngitis Weight gain Wellness examination Historical No qualifying data Procedure/Surgical History delivery, Salpingectomy. Medications No active medications Allergies Vicodin (Hives) Social History Alcohol Never., 09/25/2024 Substance Abuse Never., 09/25/2024 Tobacco Never (less than 100 in lifetime) Tobacco Use:. Never Smokeless Tobacco Use:. Household tobacco concerns: No. Yes, 09/25/2024 Family History Acute myocardial infarction: Grandparent. Primary malignant neoplasm of colon: Father and Grandparent. Immunizations Vaccine Date Status Comments influenza virus vaccine, inactivated 05/12/2023 Given SARS-CoV-2 mRNA (torainnameran 5y-11y) vac - Not Given Postpone due to refusal influenza virus vaccine, inactivated 06/01/2022 Recorded influenza virus vaccine, inactivated 03/24/2022 Recorded Normal [facility] Comment on above: Result Comment: Elec tronically Signed By: Juani Guerrier\.br\Date and Time Signed: 09/25/24 14:00 EDT IGP,APTIMA HPV,AGE GDLNon AGE GDLN ACOG TESTING Note . [facility] Comment on above: TESTS RESULT FLAG U NITS REF RANGE LAB Clinician Provided Cytology Information Source.............Cervix;Endocervix No. of containers..01 ThinPrep Vial Age Algo ACOG Rosa... FLAG LEGEND: L-Low Normal,H-High Normal,LL-Alert Low,HH-Alert High <-Panic Low,>-Panic High,A-Abnormal,AA-Critical Abnormal Performed at: 01 = [facility] [place] [address] Katarzyna Dunlap MD, HPV APTIMA Negative Negative [facility] Comment on above: This nucleic acid am plification test detects fourteen high- risk HPV types (16,18,31,33,35,39,45,51,52,56,58,59,66,68) without differentiation. Performed at: =[facility] [id number] Post Secondary Professional: Katarzyna Dunlap MD, Phone: [phone] Performed at: [facility] [address] [facility] [address], [place], [place] [id number] Post Secondary Professional: Kathya Mcginnis MD, Phone: [phone] IGP, APTIMA HPV, RFX 16/18,45 Note Abnormal . [facility] Comment on above: TESTS RESULT FLAG UN ITS REF RANGE LAB DIAGNOSIS: [A] 02 EPITHELIAL CELL ABNORMALITY. ATYPICAL SQUAMOUS CELLS OF UNDETERMINED SIGNIFICANCE (ASC-US). Specimen adequacy: 02 Satisfactory for evaluation. No endocervical component is identified. Performed by: 03 Meron Lazo, Radiation Oncology Therapist ([facility]) Electronically si... Deion Raza MD, Pathologist . 02 Pathologist ICD10: 02 R87.610 Note: Note 03 The Pap smear is a screening test designed to aid in the detection of premalignant and malignant conditions of the uterine cervix. It is not a diagnostic procedure and should not be used as the sole means of detecting cervical cancer. Both false-positive and false-negative reports do occur. Test Methodology: Note 03 This liquid based ThinPrep(R) pap test was screened with the use of an image guided system. HPV Genotype Reflex Note 02 Criteria not met, HPV Genotype not performed. FLAG LEGEND: L-Low Normal,H-High Normal,LL-Alert Low,HH-Alert High <-Panic Low,>-Panic High,A-Abnormal,AA-Critical Abnormal Performed at: 02 [facility] [place] [address] [facility] [address], [place] [address] Kathya Mcginnis MD, 03 WB [facility] [address] [address] Katarzyna Dunlap MD, Interpretation and review of laboratory results Abnormal [facility] Healthcare BRUSH-SPATULA CERVIX ENDOCERVIX [facility] Healthcare Ambulatory Visit Summaryon 0 01-04-2024 Ambulatory Visit Summary Ambulatory Visit Summary KAL TRIANA :1990 Visit Date:01/04/2024 Ambulatory Visit Instructions Your Diagnosis BMI 30.0-30.9,adult Non-smoker Class 1 obesity due to excess calories in adult Encounter for weight management PCOS (polycystic ovarian syndrome) Weight gain Your Care Team Attending Physician - Juani Guerrier Primary Care Physician - Juani Guerrier This Is Your Medications List phentermine (phentermine 37.5 mg Tab) Procedures Performed delivery, Salpingectomy. Discharge Vitals Temperature (Oral) 36.8 ?C Heart Rate (Peripheral) 89 Respiratory Rate 16 Blood Pressure 116/74 Height 159 cm Height 63 in Weight 77.8 kg Weight 171.16 lb BMI 30.77 What to do next Scheduled Follow-Up Appointments Monday 11:20 AM EST With: Juani Guerrier Where: [address] [address]- Medications What How Much When Why Instructions New phentermine (phentermine 37.5 mg Tab) 1 Tablets By Mouth Every day Encounter for weight management Weight gain PCOS (polycystic ovarian syndrome) bmi 34.1 Pickup at [facility] Pharmacy Information [facility]: [address] [place], [place] [id number] [phone] Allergies Vicodin (Hives) Problems Ongoing - Any problem that you are currently receiving treatment for. Adult BMI 36.0-36.9 kg/sq m BMI 30.0-30.9,adult BMI 35.0-35.9,adult Class 1 obesity due to excess calories in adult Encounter for weight management Encounter to establish care PCOS (polycystic ovarian syndrome) Pre-employment examination Sore throat Strep pharyngitis Weight gain Wellness examination Patient Survey You may receive a survey via text or e-mail asking about your office visit. Please share your experience with us by completing your survey. We appreciate your feedback and thank you for choosing us for your care. Jessica [facility] Family Medicine Office/Clini c Noteon 01-04-2024 Family Medicine Office/Clinic Note Family Medicine Office/Clinic Note Chief Complaint 3m med check HPI Staff Weight management Started Phentermine on 08/08/23 Sleeping well:Yes, 6-8 hours Chest pain:No Tremors:No Headaches:No Heart fluttering:Yes has noticed for the past 1-2m Blurred Vision:No Starting Weight: 207.2 Weight last visit: 200 Weight this visit: 171.16 Admits to forgetting some doses. Will try to remember to take everyday as directed. History of Present Illness pt presents today for weight management Review of Systems PHQ Score Initial Depression Screen Score: 0 SCORE Physical Exam Vitals & Measurements T: 36.8 ?C(Oral) HR: 89(Peripheral) RR: 16 BP: 116/74 SpO2: 98% HT: 63 in HT: 159 cm WT: 77.8 kg WT: 171.16 lb BMI: 30.77 General: alert, no acute distress ENMT: oral mucosa moist, no pharyngeal erythema or exudate Cardiovascular: regular rate and rhythm, normal peripheral perfusion Respiratory: Lungs CTA, respirations non labored Extremities: no deformity, no trauma Neurological: oriented x 4, LOC appropriate for age, CN II-XII intact, motor strength equal & normal bilaterally, speech normal Assessment/Plan 1. Encounter for weight management (Z76.89: Persons encountering health services in other specified circumstances) pt is down a total of 36 pounds since starting. will send refill. all questions answered. RTC 3 months Ordered: phentermine, 37.5 mg = 1 tab(s), Oral, Daily, bmi 34.1, # 30 tab(s), Refills(s) 0, Pharmacy: [facility], 159, cm, 01/04/24 8:43:00 EDT, Height/Length Dosing, 77.8, kg, 01/04/24 8:43:00 EDT, Weight Dosing phentermine, 37.5 mg = 1 tab(s), Oral, Daily, bmi 34.1, # 30 tab(s), Refills(s) 0, Pharmacy: [facility], 160, cm, 11/27/23 7:36:00 EDT, Height/Length Dosing, 87.5, kg, 11/27/23 7:36:00 EDT, Weight Dosing 2. BMI 30.0-30.9,adult (Z68.30: Body mass index [BMI] 30.0-30.9, adult) pt is down 36 pounds. will continue making good food choices and exercising 3. Class 1 obesity due to excess calories in adult (E66.09: Other obesity due to excess calories) see above 4. Non-smoker (Z78.9: Other specified health status) continue not smoking Follow-up No qualifying data available Problem List/Past Medical History Ongoing Adult BMI 36.0-36.9 kg/sq m BMI 30.0-30.9,adult BMI 35.0-35.9,adult Class 1 obesity due to excess calories in adult Encounter for weight management Encounter to establish care PCOS (polycystic ovarian syndrome) Pre-employment examination Sore throat Strep pharyngitis Weight gain Wellness examination Historical No qualifying data Procedure/Surgical History delivery, Salpingectomy. Medications phentermine 37.5 mg Tab, 37.5 mg= 1 tab(s), Oral, Daily Allergies Vicodin (Hives) Social History Tobacco Never (less than 100 in lifetime) Tobacco Use:. Never Smokeless Tobacco Use:. Household tobacco concerns: No. Yes, 01/04/2024 Family History Acute myocardial infarction: Grandparent. Primary malignant neoplasm of colon: Father and Grandparent. Immunizations Vaccine Date Status Comments influenza virus vaccine, inactivated 05/12/2023 Given SARS-CoV-2 mRNA (tolidiaeran 5y-11y) vac - Not Given Postpone due to refusal influenza virus vaccine, inactivated 06/01/2022 Recorded influenza virus vaccine, inactivated 03/24/2022 Recorded Normal [facility] Comment on above: Result Comment: Elec tronically Signed By: Juani Guerrier\.br\Date and Time Signed: 01/04/24 08:53 EDT CBC AUTO DIFFon 07-22-2022 BASO # 0.0 103/ul Normal 0.0-0.1 [facility] Comment on above: Performed By: #### G TT3P #### [facility] [address] [address] [address] Kimberly Daigle Basophils/100 WBC (Bld) 0.5 % Normal 0.2-2.0 [facility] Comment on above: Performed By: #### G TT3P #### [facility] [address] [address] [address] Kimberly Daigle EO # 0.1 103/ul Normal 0.0-0.7 [facility] Comment on above: Performed By: #### G TT3P #### [facility] [address] [address] [address] Kimberly Daigle Eosinophils/100 WBC (Bld) 1.0 % Normal 0.9-7.0 [facility] Comment on above: Performed By: #### G TT3P #### [facility] [address] [place] [address] Dr. Kimberly Daigle Erythrocyte distribution width (RBC) [Ratio] 14.3 % Normal 11.0-15.0 [facility] Comment on above: Performed By: #### G TT3P #### [facility] [address] [place] [address] Dr. Kimberly Daigle Hematocrit (Bld) [Volume fraction] 23.2 % Critically low 36.0-48.0 [facility] Comment on above: Performed By: #### G TT3P #### [facility] [address] [place] [address] Dr. Kimberly Daigle Hemoglobin (Bld) [Mass/Vol] 7.4 g/dL Critically low 12.0-16.0 [facility] Comment on above: Performed By: #### G TT3P #### [facility] [address] [address] [address] Kimberly Daigle IG # 0.09 10e3/ul Critically high 0.00-0.03 [facility] Comment on above: Performed By: #### G TT3P #### [facility] [address] [address] [address] Kimberly Daigle IG % 1.1 % Critically high 0.0-0.5 [facility] Comment on above: Performed By: #### G TT3P #### [facility] [address] [address] [address] Kimberly Daigle LYMPH # 1.2 103/ul Normal 1.2-3.8 [facility] Comment on above: Performed By: #### G TT3P #### [facility] [address] [address] [address] Kimberly Daigle Lymphocytes/100 WBC (Bld) 13.9 % Critically low 20.5-60.0 [facility] Comment on above: Performed By: #### G TT3P #### [facility] [address] [address] [address] Kimberly Daigle MANUAL DIFF REQ NO Normal [facility] Comment on above: Performed By: #### G TT3P #### [facility] [address] [place] [address] Dr. Kimberly Daigle MCH (RBC) [Entitic mass] 26.6 pg Critically low 26.7-34.0 [facility] Comment on above: Performed By: #### G TT3P #### [facility] [address] [address] [address] Kimberly Daigle MCHC (RBC) [Mass/Vol] 31.9 g/dL Normal 29.9-35.2 [facility] Comment on above: Performed By: #### G TT3P #### [facility] [address] [address] [address] Kimberly Daigle MCV (RBC) [Entitic vol] 83.5 fL Normal 81.0-99.0 [facility] Comment on above: Performed By: #### G TT3P #### [facility] [address] [address] [address] Kimberly Daigle MONO # 0.5 103/ul Normal 0.3-0.8 [facility] Comment on above: Performed By: #### G TT3P #### [facility] [address] [address] [address] Kimberly Daigle Monocytes/100 WBC (Bld) 5.9 % Normal 1.7-12.0 [facility] Comment on above: Performed By: #### G TT3P #### [facility] [address] [address] [address] Kimberly Daigle NEUT # 6.5 103/ul Normal 1.4-6.5 [facility] Comment on above: Performed By: #### G TT3P #### [facility] [address] [address] [address] Kimberly Daigle Neutrophils/100 WBC (Bld) 77.6 % Critically high 43.0-75.0 [facility] Comment on above: Performed By: #### G TT3P #### [facility] [address] [address] [address] Kimberly Daigle Platelet mean volume (Bld) [Entitic vol] 10.1 fL Normal 9.5-13.5 [facility] Comment on above: Performed By: #### G TT3P #### [facility] [address] [address] [address] Kimberly Daigle PLT 246 103/ul Normal 150-450 [facility] Comment on above: Performed By: #### G TT3P #### [facility] [address] [address] [address] Kimberly Daigle RBC 2.78 106/ul Critically low 4.20-5.40 [facility] Comment on above: Performed By: #### G TT3P #### [facility] [address] [address] [address] Kimberly Daigle WBC 8.4 103/ul Normal 4.0-11.0 [facility] Comment on above: Performed By: #### G TT3P #### [facility] [address] [address] [address] Kimberly Daigle CBC AUTO DIFFon 07-21-2022 BASO # 0.0 103/ul Normal 0.0-0.1 [facility] Comment on above: Performed By: #### C BC ####[facility] [address] [address]Dr. Kimberly Daigle Basophils/100 WBC (Bld) 0.4 % Normal 0.2-2.0 [facility] Comment on above: Performed By: #### C BC ####[facility] [address] [id number]. Kimberly Daigle EO # 0.0 103/ul Normal 0.0-0.7 [facility] Comment on above: Performed By: #### C BC ####[facility] [address] [address]Dr. Kimberly Daigle Eosinophils/100 WBC (Bld) 0.2 % Critically low 0.9-7.0 [facility] Comment on above: Performed By: #### C BC ####[facility] [address] [address]Dr. Kimberly Daigle Erythrocyte distribution width (RBC) [Ratio] 14.0 % Normal 11.0-15.0 [facility] Comment on above: Performed By: #### C BC ####[facility] [address] [place], [place] [address]Dr. Kimberly Daigle Hematocrit (Bld) [Volume fraction] 22.7 % Critically low 36.0-48.0 [facility] Comment on above: Performed By: #### C BC ####[facility] [address] [place], [place] [address]Dr. Kimberly Daigle Hemoglobin (Bld) [Mass/Vol] 7.3 g/dL Critically low 12.0-16.0 [facility] Comment on above: Performed By: #### C BC ####[facility] [address] [place], [place] [address]Dr. Kimberly Daigle IG # 0.05 10e3/ul Critically high 0.00-0.03 [facility] Comment on above: Performed By: #### C BC ####[facility] [address] [place], [place] [address]Dr. Ana Mabelardo Daigle IG % 0.6 % Critically high 0.0-0.5 [facility] Comment on above: Performed By: #### C BC ####[facility] [address] [place], [place] [address]DrSergey Daigle LYMPH # 1.9 103/ul Normal 1.2-3.8 [facility] Comment on above: Performed By: #### C BC ####[facility] [address] [phone]. Kibmerly Daigle Lymphocytes/100 WBC (Bld) 20.9 % Normal 20.5-60.0 [facility] Comment on above: Performed By: #### C BC ####[facility] [address] [id number] Daigle MANUAL DIFF REQ NO Normal [facility] Comment on above: Performed By: #### C BC ####[facility] [address] [phone]. Kimberly Daigle MCH (RBC) [Entitic mass] 27.3 pg Normal 26.7-34.0 [facility] Comment on above: Performed By: #### C BC ####[facility] [address] [place], [place] [address]Dr. Kimberly Daigle MCHC (RBC) [Mass/Vol] 32.2 g/dL Normal 29.9-35.2 [facility] Comment on above: Performed By: #### C BC ####[facility] [address] [place], [place] [id number] Daigle MCV (RBC) [Entitic vol] 85.0 fL Normal 81.0-99.0 [facility] Comment on above: Performed By: #### C BC ####[facility] [address] [address]Dr. Kimberly Daigle MONO # 0.7 103/ul Normal 0.3-0.8 [facility] Comment on above: Performed By: #### C BC ####[facility] [address] [place], [place] [address]DrSergey Daigle Monocytes/100 WBC (Bld) 7.8 % Normal 1.7-12.0 [facility] Comment on above: Performed By: #### C BC ####[facility] [address] [place], [place] [address]DrSergey Daigle NEUT # 6.3 103/ul Normal 1.4-6.5 [facility] Comment on above: Performed By: #### C BC ####[facility] [address] [phone]. Kimberly Daigle Neutrophils/100 WBC (Bld) 70.1 % Normal 43.0-75.0 [facility] Comment on above: Performed By: #### C BC ####[facility] [address] [phone]. Kimberly Daigle Platelet mean volume (Bld) [Entitic vol] 10.6 fL Normal 9.5-13.5 [facility] Comment on above: Performed By: #### C BC ####[facility] [address] [address]Dr. Kimberly Daigle PLT 229 103/ul Normal 150-450 [facility] Comment on above: Performed By: #### C BC ####[facility] [address] [address]Dr. Kimberly Daigle RBC 2.67 106/ul Critically low 4.20-5.40 [facility] Comment on above: Performed By: #### C BC ####[facility] [address] [phone]. Kimberly Daigle WBC 8.9 103/ul Normal 4.0-11.0 [facility] Comment on above: Performed By: #### C BC ####[facility] [address] [address]Dr. Kimberly Daigle CBC AUTO DIFFon 07-20-2022 BASO # 0.1 103/ul Normal 0.0-0.1 [facility] Comment on above: Performed By: #### C BC ####[facility] [address] [address]Dr. Kibmerly Daigle Basophils/100 WBC (Bld) 0.6 % Normal 0.2-2.0 [facility] Comment on above: Performed By: #### C BC ####[facility] [address] [address]Dr. Kimberly Daigle EO # 0.1 103/ul Normal 0.0-0.7 [facility] Comment on above: Performed By: #### C BC ####[facility] [address] [address]Dr. Kimberly Daigle Eosinophils/100 WBC (Bld) 0.8 % Critically low 0.9-7.0 [facility] Comment on above: Performed By: #### C BC ####[facility] [address] [place], [place] [address]Dr. Kimberly Daigle Erythrocyte distribution width (RBC) [Ratio] 14.1 % Normal 11.0-15.0 [facility] Comment on above: Performed By: #### C BC ####[facility] [address] [place], [place] [address]Dr. Kimberly Daigle Hematocrit (Bld) [Volume fraction] 28.6 % Critically low 36.0-48.0 [facility] Comment on above: Performed By: #### C BC ####[facility] [address] [place], [place] [address]Dr. Kimberly Daigle Hemoglobin (Bld) [Mass/Vol] 9.0 g/dL Critically low 12.0-16.0 [facility] Comment on above: Performed By: #### C BC ####[facility] [address] [place], [place] [address]Dr. Kimberly Daigle IG # 0.03 10e3/ul Normal 0.00-0.03 [facility] Comment on above: Performed By: #### C BC ####[facility] [address] [place], [place] [address]Dr. Kimberly Daigle IG % 0.4 % Normal 0.0-0.5 [facility] Comment on above: Performed By: #### C BC ####[facility] [address] [place], [place] [address]Dr. Kimberly Daigle LYMPH # 1.5 103/ul Normal 1.2-3.8 [facility] Comment on above: Performed By: #### C BC ####[facility] [address] [place], [place] [address]Dr. Kimberly Pilo Lymphocytes/100 WBC (Bld) 18.4 % Critically low 20.5-60.0 [facility] Comment on above: Performed By: #### C BC ####[facility] [address] [address]DrSergey Daigle MANUAL DIFF REQ NO Normal [facility] Comment on above: Performed By: #### C BC ####[facility] [address] [id number]. Kimberly Daigle MCH (RBC) [Entitic mass] 26.2 pg Critically low 26.7-34.0 [facility] Comment on above: Performed By: #### C BC ####[facility] [address] [address]Dr. Kimberly Daigle MCHC (RBC) [Mass/Vol] 31.5 g/dL Normal 29.9-35.2 [facility] Comment on above: Performed By: #### C BC ####[facility] [address] [place], [place] [address]Dr. Kimberly Daigle MCV (RBC) [Entitic vol] 83.1 fL Normal 81.0-99.0 [facility] Comment on above: Performed By: #### C BC ####[facility] [address] [place], [place] [address]DrSergey Daigle MONO # 0.7 103/ul Normal 0.3-0.8 [facility] Comment on above: Performed By: #### C BC ####[facility] [address] [place], [place] [address]Dr. Kimberly Daigle Monocytes/100 WBC (Bld) 7.8 % Normal 1.7-12.0 [facility] Comment on above: Performed By: #### C BC ####[facility] [address] [place], [place] [address]DrSergey Daigle NEUT # 6.0 103/ul Normal 1.4-6.5 [facility] Comment on above: Performed By: #### C BC ####[facility] Psiiaxv[address] [place], [place] [address]DrSergey Daigle Neutrophils/100 WBC (Bld) 72.0 % Normal 43.0-75.0 [facility] Comment on above: Performed By: #### C BC ####[facility] [address] [place] [address]DrSergey Daigle Platelet mean volume (Bld) [Entitic vol] 10.7 fL Normal 9.5-13.5 [facility] Comment on above: Performed By: #### C BC ####[facility] [address] [place] [address]Dr. Kimberly Daigle PLT 254 103/ul Normal 150-450 [facility] Comment on above: Performed By: #### C BC ####[facility] [address] [place] [address]Dr. Kimberly Daigle RBC 3.44 106/ul Critically low 4.20-5.40 [facility] Comment on above: Performed By: #### C BC ####[facility] [address]smgcmsuar[address] [place] [address]DrSergey Daigle WBC 8.4 103/ul Normal 4.0-11.0 [facility] Comment on above: Performed By: #### C BC ####[facility] [address]fpc[address] [place] [address]Dr. Kimberly Daigle DRUG SCREEN RAPID (URINE)on 07-20-2022 AMP Negative Normal NEGATIVE [facility] Comment on above: Performed By: #### D RUGRPD #### [facility] [address] [address] [address] Kimberly Daigle BAR Negative Normal NEGATIVE [facility] Comment on above: Performed By: #### D RUGRPD #### [facility] [address] [address] [address] Kimberly Daigle BUP Negative Normal NEGATIVE [facility] Comment on above: Performed By: #### D RUGRPD #### [facility] [address] [place] [address] Dr. Kimberly Daigle BZO Negative Normal NEGATIVE [facility] Comment on above: Performed By: #### D RUGRPD #### [facility] [address] [address] [address] Kimberly Daigle LOCO Negative Normal NEGATIVE [facility] Comment on above: Performed By: #### D RUGRPD #### [facility] [address] [place] [address] Dr. Kimberly Daigle CUT-OFFS SEE BELOW Normal [facility] Comment on above: Result Comment: AMP (Amphetamine): 500ng/mL, BAR (Barbituates): 200 ng/mL, BZO (Benzodiazepines): 150 ng/mL, BUP (Buprenorphine): 10 ng/mL, LOCO (Cocaine): 150 ng/mL, mAMP (Methamphetamine): 500 ng/mL, MTD (Methadone): 200 ng/mL, OPI (Opiates): 100 ng/mL, OXY (Oxycodone): 100 ng/mL, PCP (Phencyclidine): 25 ng/mL, PPX (Propoxyphene): 300 ng/mL, THC (Cannabinoids): 50 ng/mL, TCA (Trycyclic Antidepressants): 300 ng/mL Performed By: #### D RUGRPD #### [facility] [address] [place] [address] Dr. Kimberly Daigle DRUG CUT HEADER DRUG CLASS TEST SYSTEM CUT-OFF CONCENTRATIONS ARE FOLLOWS: Normal [facility] Comment on above: Performed By: #### D RUGRPD #### [facility] [address] [place] [address] Dr. Kimberly Daigle mAMP Negative Normal NEGATIVE [facility] Comment on above: Performed By: #### D RUGRPD #### [facility] [address] [place] [address] Dr. Kimberly Daigle MTD Negative Normal NEGATIVE [facility] Comment on above: Performed By: #### D RUGRPD #### [facility] [address] [place] [address] Dr. Kimberly Daigle OPI Negative Normal NEGATIVE [facility] Comment on above: Performed By: #### D RUGRPD #### [facility] [address] [place] [address] Dr. Kimberly Daigle OXY Negative Normal NEGATIVE [facility] Comment on above: Performed By: #### D RUGRPD #### [facility] [address] [address] [address] Kimberly Daigle PCP Negative Normal NEGATIVE [facility] Comment on above: Performed By: #### D RUGRPD #### [facility] [address] [address] [address] Kimberly Daigle PPX Negative Normal NEGATIVE [facility] Comment on above: Performed By: #### D RUGRPD #### [facility] [address] [address] [address] Kimberly Daigle TCA Negative Normal NEGATIVE [facility] Comment on above: Performed By: #### D RUGRPD #### [facility] [address] [address] [address] Kimberly Daigle THC Negative Normal NEGATIVE [facility] Comment on above: Performed By: #### D RUGRPD #### [facility] [address] [place] [address] Dr. Kimberly Daigle POINT OF CARE GLUCOSEon Glucose [Mass/Vol] 77 mg/dL Normal 74-106 [facility] Comment on above: Performed By: #### G TT3P #### [facility] [address] [place] [address] Dr. Kimberly Daigle TYPE AND SCREENon 07-20-2022 TYPE AND SCREEN Negative Normal [facility] Comment on above: Performed By: #### T NS ####[facility] Rhylvneyq[address] [place], [place] [address]Dr. Kimberly Daigle UA (CLEAN/CATCH) TRAIN CONTROLLER/MICRO I F IND.on 07-20-2022 Bilirubin Ql (U) Negative Normal NEGATIVE [facility] Comment on above: Performed By: #### U MICRO, UACSIND ####[facility] Ydjmnqaiiw[address] [place], [place] [address]DrSergey Daigle Clarity (U) CLEAR Normal CLEAR [facility] Comment on above: Performed By: #### U MICRO, UACSIND ####[facility] [address] [place] [address]DrSergey Daigle Color (U) YELLOW Normal YELLOW [facility] Comment on above: Performed By: #### U MICRO, UACSIND ####[facility] [address] [place] [address]Dr. Ana Mabelardo Daigle Glucose Ql (U) Negative Normal NEGATIVE [facility] Comment on above: Performed By: #### U MICRO, UACSIND ####[facility] [address]xjcmodxs[address] [place] [address]Dr. Kimberly Daigle Hemoglobin Ql (U) SMALL Abnormal NEGATIVE [facility] Comment on above: Performed By: #### U MICRO, UACSIND ####[facility] Lejbrxeoyf[address] [place], [place] [address]Dr. Kimberly Daigle Ketones Ql (U) TRACE Abnormal NEGATIVE [facility] Comment on above: Performed By: #### U MICRO, UACSIND ####[facility] Kcvwgyonne[address] [place], [place] [address]Dr. Kimberly Daigle LEUKOCYTES Negative Normal NEGATIVE [facility] Comment on above: Performed By: #### U MICRO, UACSIND ####[facility] Z[address]aimllxn[address] [place], [place] [address]Dr. Kimberly Daigle Nitrite Ql (U) Negative Normal NEGATIVE [facility] Comment on above: Performed By: #### U MICRO, UACSIND ####[facility] Gghzkmviws[address] [place], [place] [address]Dr. Kimberly Daigle pH (U) 6.0 [pH] Normal 5-9 [facility] Comment on above: Performed By: #### U MICRO, UACSIND ####[facility] Oknwquflku[address] [place], [place] [address]Dr. Kimberly Daigle SPEC GRAVITY 1.025 Normal 1.005-<=1.025 [facility] Comment on above: Performed By: #### U MICRO, UACSIND ####[facility] Noeyfdaqwr[address] [place], [place] [address]Dr. Kimberly Daigle UA PROTEIN TRACE Normal NEGATIVE/ TRACE [facility] Comment on above: Performed By: #### U MICRO, UACSIND ####[facility] Tikcyeqdjo[address] [place], [place] [address]Dr. Kimberly Daigle UR MICRO IND INDICATED Normal [facility] Comment on above: Performed By: #### U MICRO, UACSIND ####[facility] [address] [place] [address]Dr. Kimberly Daigle Urobilinogen Qn (U) 0.2 {Radha'U}/dL Normal 0.2 - 1. 0 [facility] Comment on above: Performed By: #### U MICRO, UACSIND ####[facility] [address] [place] [address]Dr. Kimberly Daigle URINE MICROSCOPIC ONLYon BACTERIA TRACE Abnormal NONE SEEN [facility] Comment on above: Performed By: #### U MICRO, UACSIND ####[facility] Jvelxvbqvr[address] [place], [place] [address]Dr. Kimberly Daigle Bacteria identified Cx Nom (U) NOT INDICATED Normal [facility] Comment on above: Performed By: #### U MICRO, UACSIND ####[facility] Ajpbtubzig[address] [place], [place] [address]Dr. Kimberly Daigle CAST NONE SEEN Normal NONE SEEN [facility] Comment on above: Performed By: #### U MICRO, UACSIND ####[facility] Tnzrdpedtd[address] [place], [place] [address]Dr. Kimberly Daigle Crystals LM Nom (Urine sed) NONE SEEN Normal NONE SEEN [facility] Comment on above: Performed By: #### U MICRO, UACSIND ####[facility] Xlxlczepqn[address] [place], [place] [address]Dr. Kimberly Daigle Epithelial cells LM Ql (Urine sed) NONE SEEN Normal NONE SEEN /RARE [facility] Comment on above: Performed By: #### U MICRO, UACSIND ####[facility] Avx[address]kf[address] [place], [place] [address]Dr. Kimberly Daigle MUCOUS SMALL Abnormal NONE SEEN [facility] Comment on above: Performed By: #### U MICRO, UACSIND ####[facility] [address] [place] [address]Dr. Kimberly Daigle RBC 2-5 Abnormal 0-2 [facility] Comment on above: Performed By: #### U MICRO, UACSIND ####[facility] [address] [place] [id number]. Kimberly Daigle WBC 0-2 Abnormal NONE SEEN [facility] Comment on above: Performed By: #### U MICRO, UACSIND ####[facility] [address] [place] [address]Dr. Kimberly Daigle CHLAMYDIA/GONOCOCCUS KHANG (SW AB/URINE/PAPon 07-14-2022 Chlamydia trachomatis, KHANG Negative Normal Negative [facility] Comment on above: Performed By: #### P REGQNT #### [facility] [address] [address] [address] Kimberly Daigle Neisseria gonorrhoeae, KHANG Negative Normal Negative [facility] Comment on above: Performed By: #### P REGQNT #### [facility] [address] [address] [address] Kimberly Daigle VAGINITIS/VAGINOSIS DNA PROB Seng 07-13-2022 Linn species Negative Normal Negative [facility] Comment on above: Performed By: #### P REGQNT #### [facility] [address] [address] [address] Kimberly Daigle Gardnerella vaginalis Negative Normal Negative [facility] Comment on above: Performed By: #### P REGQNT #### [facility] [address] [address] [address] Kimberly Daigle Trichomonas vaginalis Negative Normal Negative [facility] Comment on above: Performed By: #### P REGQNT #### [facility] [address] [address] [address] Kimberly Daigle US PREG BIOPHY W NON STRESSo n 07-12-2022 US PREG BIOPHY W NON STRESS EXAMINATION: US PREG BIOPHY W NON STRESS HISTORY: Patient currently COMPARISON: Ultrasound biophysical 07/05/2022 FINDINGS: BREATHING MOVEMENTS: 2.0 GROSS BODY MOVEMENTS: 2.0 TONE: 2.0 QUALITATIVE AMNIOTIC FLUID VOLUME: 2.0 PRESENTATION: CEPHALIC HEART RATE: 137.1 bpm bpm. AMNIOTIC FLUID VOLUME: 17.1 cm GESTATIONAL AGE: 36 weeks 4 days CONCLUSION: Total biophysical profile score 8.0. Electronically authenticated by: SAIRA ERICKSON Date: 2022-07-12 17:43 Normal [facility] GROUP B STREP CULTUREon 06-23 S. agalactiae Ag Ql (Unsp spec) Culture Observations: NEGATIVE FOR GROUP B STREPTOCOCCUS. Normal [facility] Comment on above: Performed By: #### G BSCX ####[facility] [address] [place] [address]DrSergey Daigle US PREG BIOPHY W NON STRESSo n 07-06-2022 US PREG BIOPHY W NON STRESS EXAMINATION: US PREG BIOPHY W NON STRESS HISTORY: Patient currently COMPARISON: No relevant comparison available. TECHNIQUE: Ultrasound biophysical profile was performed in the radiology department. FINDINGS: BREATHING MOVEMENTS: 2.0 GROSS BODY MOVEMENTS: 2.0 TONE: 2.0 QUALITATIVE AMNIOTIC FLUID VOLUME: 2.0 PRESENTATION: CEPHALIC HEART RATE: 133.0 bpm H.B./min AMNIOTIC FLUID VOLUME: 16.0 cm cm GESTATIONAL AGE: 35 weeks 4 days CONCLUSION: Total biophysical profile score: 8.0 Electronically authenticated by: DINA ONOFRE Date: 2022-07-06 06:01 Normal [facility] US PREG BIOPHY W NON STRESSo n 06-29-2022 US PREG BIOPHY W NON STRESS EXAMINATION: US PREG BIOPHY W NON STRESS HISTORY: Amniotic fluid leaking COMPARISON: No relevant comparison available. TECHNIQUE: Ultrasound biophysical profile was performed in the radiology department. FINDINGS: BREATHING MOVEMENTS: 2.0 GROSS BODY MOVEMENTS: 2.0 TONE: 2.0 QUALITATIVE AMNIOTIC FLUID VOLUME: 2.0 PRESENTATION: CEPHALIC HEART RATE: 151.7 bpm H.B./min AMNIOTIC FLUID VOLUME: 20.1 cm cm GESTATIONAL AGE: 34 weeks 4 days CONCLUSION: Total biophysical profile score: 8.0 Electronically authenticated by: DINA ONOFRE Date: 2022-06-29 18:12 Normal [facility] US PREG GROWTHon 06-29-2022 US PREG GROWTH EXAMINATION: US PREG GROWTH HISTORY: Gestational diabetes mellitus COMPARISON: No relevant comparison available. FINDINGS: Heart Rate: 140.3 bpm Amniotic Fluid Volume: 19.0 cm Number: 1.0 Position: Cephalic presentation, longitudinal lie Placenta: Anterior, grade 0 Maximum Vertical Pocket: 5.7 cm cm 1.8 cm cm 5.8 cm cm 5.7 cm cm BIOMETRY: BPD: 9.0 cm cm; 36 weeks 2 days; 89% HC: 31.9 cmcm; 36 weeks 0 days, 47% AC: 32.1 cm cm; 36 weeks 0 days, 88% FL: 6.6 cm cm; 34 weeks 0 days; 23.8 % % EFW: 2702.0 grams, 5 lbs. 15 oz., 70% FL/AC: 20.6 FL/BPD: 73.6 HC/AC: 1.0 GESTATIONAL AGE: Age by EDC: 34 weeks 5 days JON by EDC: 08/05/2022 Age by US: 35 weeks 4 days JON by US: 07/30/2022 IMPRESSION: Normal interval growth Electronically authenticated by: DINA ONOFRE Date: 2022-06-29 18:13 Normal [facility] GTT 3 HR PREGon 05-07-2022 Glucose [Mass/Vol] 83 mg/dL Normal 74-106 [facility] Comment on above: Performed By: #### G TT3P ####[facility] [address] [place] [address]Dr. Kimberly Daigle Glucose [Mass/Vol] 171 mg/dL Normal [facility] Comment on above: Performed By: #### G TT3P ####[facility] [address] [place] [address]Dr. Kimberly Daigle Glucose [Mass/Vol] 180 mg/dL Normal [facility] Comment on above: Performed By: #### G TT3P ####[facility] [address] [place] [address]Dr. Ana Mabelardo Daigle Glucose [Mass/Vol] 146 mg/dL Normal [facility] Comment on above: Performed By: #### G TT3P ####[facility] [address] [place], [place] [address]Dr. Kimberly Daigle US PREG INCOMPLETE ANATOMYon 04-22-2022 US PREG INCOMPLETE ANATOMY EXAMINATION: US PREG INCOMPLETE ANATOMY HISTORY: Patient currently COMPARISON: 03/11/2022 FINDINGS: position: Breech presentation, longitudinal lie Amniotic fluid: Subjectively normal Heart rate: 154 bpm Anatomy: Normal four-chamber heart, RVOT, LVOT and sacral spine IMPRESSION: Normal observed anatomy Electronically authenticated by: DINA ONOFRE Date: 2022-04-22 07:12 Normal [facility] US PREG ANATOMY SINGLEon US PREG ANATOMY SINGLE EXAMINATION: US PREG ANATOMY SINGLE HISTORY: screening COMPARISON: No relevant comparison available. TECHNIQUE: Transabdominal sonographic examination was performed for obstetrical and evaluation. FINDINGS: Number: 1 Heart Rate: 142.9 bpm H.B. /min Amniotic Fluid Volume: Placental Location: ANTERIOR Cervix Length: 4 cm Normally visualized anatomy: Cerebellum, choroid plexus, cisterna magna, lateral cerebral ventricles, orbits, midline falx, hard palate, stomach, kidneys, bladder, umbilical cord insertion into the abdomen, three-vessel cord, cervical spine, thoracic spine, lumbar spine, right upper extremity, left upper extremity, right lower extremity, left lower extremity Suboptimally visualized anatomy: four-chamber heart, RVOT, LVOT, diaphragm, sacral spine BIOMETRY: BPD: 4.7 cm 20 weeks 1 days , 59% HC: 17.5 cm 20 weeks 0 days, 41% AC: 17.0 cm 22 weeks 0 days, 94% FL: 3.2 cm 20 weeks 0 days, 42% EFW:386.3 grams; 14 ounces, 91% FL/AC: 18.9 FL/BPD: 68.2 HC/AC: 1.0 GESTATIONAL AGE: Age by EDC: 20 weeks 0 days JON by EDC: 08/05/2022 Age by current US: 20 weeks 4 days JON by current US: 08/01/2022 IMPRESSION: Suboptimal visualization is detailed above *Reference: [employer] Practice Guideline for the performance of Obstetric Ultrasound Examinations, February 19, 2007. Electronically authenticated by: DINA ONOFRE Date: 2022-03-20 09:45 Normal [facility] AFP MATERNAL FOR SPINA BIFID Aon 03-18-2022 AFP MoM 1.08 Normal [facility] Comment on above: Performed By: #### A FPMAT ####[facility] [address] [place] [address]Dr. Kimberly Daigle AFP Value 48.2 ng/mL Normal [facility] Comment on above: Performed By: #### A FPMAT ####[facility] [address] [place] [address]Dr. Harris Daigle AFP, Serum for Spina Bifida Report Normal [facility] Comment on above: Performed By: #### A FPMAT ####[facility] [address] [place] [id number]. Kimberly Daigle Comment Comment Normal [facility] Comment on above: Result Comment: Davey Ledbetter, Ph.D., [facility] Director . References: Available Upon Request. . Multiples Of Median Cutoffs For AFP Elevations Garcia 2.5 Black 2.8 IDD 2.0 Twins 4.5 Abbreviation Definitions IDD - Insulin Dep Diabetes OSBR - Open Spina Bifida Risk . For further inquiries contact [facility] at [phone]. . This test was developed and its performance characteristics determined by [employer]. It has not been cleared or approved by the Food and Drug Administration. Performed By: #### A FPMAT ####[facility] [address] [place] [address]Dr. Kimberly Daigle Gest Age Collection Date 19.4 weeks Normal [facility] Comment on above: Performed By: #### A FPMAT ####[facility] [address] [place] [id number]. Kimberly Daigle Gestat, Age Based on JON Normal [facility] Comment on above: Result Comment: 07/20 Recalculations are not recommended when gestational dating by LMP and ultrasound are within 10 days. Performed By: #### A FPMAT ####[facility] [address]rg[address] [place] [address]DrSergey Daigle Insulin Dep Diabetes No Normal [facility] Comment on above: Performed By: #### A FPMAT ####[facility] [address] [place] [address]Dr. Kimberly Daigle Interpretation Comment Normal [facility] Comment on above: Result Comment: Inte rpretation: Screen Negative . This result is screen negative for OSB. The AFP MoM calculated is based on the gestational age provided. MS-AFP can identify up to 80% of open neural tube defects. Closed neural tube defects and some open defects may not be detected by this test. This test does not screen for Down Syndrome or Trisomy 18. If screening for Down Syndrome or Trisomy 18 is desired, contact [facility] [employer] [facility] to discuss available options. The [employer] recommends amniocentesis be offered to women age 35 and older. Performed By: #### A FPMAT ####[facility] [address] [place] [address]Dr. Kimberly Daigle [age] Normal [facility] Comment on above: Performed By: #### A FPMAT ####[facility] [address]ls[address] [place] [address]Dr. Kimberly Daigle Multiple Gestation No Normal [facility] Comment on above: Performed By: #### A FPMAT ####[facility] [address] [place] [address]Dr. Kimberly Daigle OSBR Risk 1 [place] 9540 Normal [facility] Comment on above: Performed By: #### A FPMAT ####[facility] [address]hr[address] [place], [place] [address]Dr. Kimberly Daigle PDF . Normal [facility] Comment on above: Performed By: #### A FPMAT ####[facility] Jrw[address]ybetja[address] [place], [place] [address]Dr. Kimberly Daigle Race Normal [facility] Comment on above: Performed By: #### A FPMAT ####[facility] [address] [place], [place] [address]Dr. Kimberly Daigle Test Results: Negative Normal [facility] Comment on above: Performed By: #### A FPMAT ####[facility] [address] [place] [address]Dr. Kimberly Daigle LIVER PROFILEon 03-14-2022 Albumin [Mass/Vol] 2.6 g/dL Critically low 3.4-5.0 Th [facility] Comment on above: Performed By: #### L IVER ####[facility] Fefe[address]lss[address] [place], [place] [address]Dr. Kimberly Daigle Albumin/Globulin [Mass ratio] 0.6 {ratio} Normal [facility] Comment on above: Performed By: #### L IVER ####[facility] [address]trby[address] [place] [address]Dr. Kimberly Daigle ALP [Catalytic activity/Vol] 78 U/L Normal 46-116 [facility] Comment on above: Performed By: #### L IVER ####[facility] [address] [place] [address]Dr. Kimberly Daigle ALT [Catalytic activity/Vol] 16 U/L Normal 14-59 [facility] Comment on above: Performed By: #### L IVER ####[facility] [address]xj[address] [place] [address]Dr. Kimberly Daigle AST [Catalytic activity/Vol] 14 U/L Critically low 15-37 [facility] Comment on above: Performed By: #### L IVER ####[facility] [address]trfrkuq[address] [place] [address]Dr. Kimberly Daigle BILI, CONJUGATED 0.1 mg/dL Normal 0.0-0.2 [facility] Comment on above: Performed By: #### L IVER ####[facility] [address] [place], [place] [address]Dr. Kimberly Daigle Bilirubin [Mass/Vol] 0.2 mg/dL Normal 0.2-1.0 [facility] Comment on above: Performed By: #### L IVER ####[facility] [address] [place], [place] [address]Dr. Kimberly Daigle Globulin (S) [Mass/Vol] 4.2 g/dL Normal [facility] Comment on above: Performed By: #### L IVER ####[facility] [address] [address]Dr. Kimberly Daigle Protein [Mass/Vol] 6.8 g/dL Normal 6.4-8.2 [facility] Comment on above: Performed By: #### L IVER ####[facility] [address] [address]Dr. Kimberly Daigle GTT 3 HR PREGon 02-26-2022 Glucose [Mass/Vol] 89 mg/dL Normal 74-106 [facility] Comment on above: Performed By: #### G TT3P #### [facility] [address] [address] [address] Kimberly Daigle Glucose [Mass/Vol] 168 mg/dL Normal [facility] Comment on above: Performed By: #### G TT3P #### [facility] [address] [place] [address] Dr. Kimberly Daigle Glucose [Mass/Vol] 167 mg/dL Normal [facility] Comment on above: Performed By: #### G TT3P #### [facility] [address] [address] [address] Kimberly Daigle Glucose [Mass/Vol] 133 mg/dL Normal [facility] Comment on above: Performed By: #### G TT3P #### [facility] [address] [place] [address] Dr. Kimberly Daigle GLUCOSE - 1HRon 02-19-2022 Glucose [Mass/Vol] 141 mg/dL Critically high 74-106 [facility] Comment on above: Performed By: #### G TT3P #### [facility] [address] [place] [address] Dr. Kimberly Daigle CULTURE URINEon 02-08-2022 CULTURE URINE Culture Observations : LIGHT GROWTH OF MIXED GENITAL SIN. NO POTENTIAL PATHOGENS SEEN. Normal [facility] Comment on above: Performed By: #### U RCX #### [facility] [address] [place] [address] Dr. Kimberly Daigle ER URINE PROFILEon 2 Bilirubin Ql (U) Negative Normal NEGATIVE [facility] Comment on above: Performed By: #### G TT3P #### [facility] [address] [place] [address] Dr. Kimberly Daigle Clarity (U) CLEAR Normal CLEAR [facility] Comment on above: Performed By: #### G TT3P #### [facility] [address] [place] [address] Dr. Kimberly Daigle Color (U) LT. YELLOW Normal YELLOW [facility] Comment on above: Performed By: #### G TT3P #### [facility] [address] [address] [address] Kimberly MONTEIRO A micrscopic examination will be performed if indicated. Normal [facility] Comment on above: Performed By: #### G TT3P #### [facility] [address] [place] [address] Dr. Kimberly Daigle Glucose Ql (U) Negative Normal NEGATIVE [facility] Comment on above: Performed By: #### G TT3P #### [facility] [address] [address] [address] Kimberly Daigle Hemoglobin Ql (U) LARGE Abnormal NEGATIVE [facility] Comment on above: Performed By: #### G TT3P #### [facility] [address] [place] [address] Dr. Kimberly Daigle Ketones Ql (U) Negative Normal NEGATIVE [facility] Comment on above: Performed By: #### G TT3P #### [facility] [address] [place] [address] Dr. Kimberly Daigle LEUKOCYTES SMALL Abnormal NEGATIVE [facility] Comment on above: Performed By: #### G TT3P #### [facility] [address] [address] [address] Kimberly Daigle Nitrite Ql (U) Negative Normal NEGATIVE [facility] Comment on above: Performed By: #### G TT3P #### [facility] [address] [place] [address] Dr. Kimberly Daigle pH (U) 6.5 [pH] Normal 5-9 [facility] Comment on above: Performed By: #### G TT3P #### [facility] [address] [place] [address] Dr. Kimberly Daigle SPEC GRAVITY <=1.005 Abnormal 1.005-<=1.025 [facility] Comment on above: Performed By: #### G TT3P #### [facility] [address] [place] [address] Dr. Kimberly Daigle UA PROTEIN Negative Normal NEGATIVE/ TRACE [facility] Comment on above: Performed By: #### G TT3P #### [facility] [address] [place], [place] [id number] Dr. Kimberly Daigle UR MICRO IND INDICATED Normal [facility] Comment on above: Performed By: #### G TT3P #### [facility] [address] [place] [address] Dr. Kimberly Daigle Urobilinogen Qn (U) 0.2 {Radha'U}/dL Normal 0.2 - 1. 0 [facility] Comment on above: Performed By: #### G TT3P #### [facility] [address] [place] [address] Dr. Kimberly Daigle URon 02-08-2022 , QUAL Positive Abnormal NEGATIVE [facility] Comment on above: Performed By: #### G TT3P #### [facility] [address] [place] [address] Dr. Kimberly Daigle URINE MICROSCOPIC ONLYon BACTERIA TRACE Abnormal NONE SEEN The [facility] Comment on above: Performed By: #### G TT3P #### [facility] [address] [place] [address] Dr. Kimberly Daigle Bacteria identified Cx Nom (U) INDICATED Normal [facility] Comment on above: Performed By: #### G TT3P #### [facility] [address] [place] [address] Dr. Kimberly Daigle CAST NONE SEEN Normal NONE SEEN [facility] Comment on above: Performed By: #### G TT3P #### [facility] [address] [place] [address] Dr. Kimberly Daigle Crystals LM Nom (Urine sed) NONE SEEN Normal NONE SEEN [facility] Comment on above: Performed By: #### G TT3P #### [facility] [address] [place] [address] Dr. Kimberly Daigle Epithelial cells LM Ql (Urine sed) FEW Abnormal NONE SEEN /RARE [facility] Comment on above: Performed By: #### G TT3P #### [facility] [address] [place] [address] Dr. Kimberly Daigle MUCOUS NONE SEEN Normal NONE SEEN [facility] Comment on above: Performed By: #### G TT3P #### [facility] [address] [address] [address] Kimberly Daigle RBC 2-5 Abnormal 0-2 [facility] Comment on above: Performed By: #### G TT3P #### [facility] [address] [address] [address] Kimberly Daigle WBC 2-5 Abnormal NONE SEEN [facility] Comment on above: Performed By: #### G TT3P #### [facility] [address] [address] [address] Kimberly Daigle US PELVISon 02-08-2022 US PELVIS ULTRASOUND LIMITED AND ULTRASOUND PELVIS HISTORY: ; bleeding. COMPARISON: Ultrasound 12/30/21. FINDINGS: There is a single intrauterine in the breech presentation. There are heart tones of 153 beats minute. The anatomy was not imaged on this exam. The placenta is located anteriorly and grade 0. There is a hypoechoic structure within the placenta measuring 1.2 x 1.1 x 1.4 cm. There are body movements. IMPRESSION: Single viable intrauterine . Anteriorly located placenta with likely placental shaw. Recommend dedicated second trimester OB ultrasound at 18-22 weeks. Electronically authenticated by: BENNY BRYAN Date: 2022-02-08 19:26 Normal [facility] RAKAN BOX TEST PT SEND OUTo n 01-19-2022 SENT TO REF LAB 01/19/2022 Normal [facility] Comment on above: Performed By: #### N BOX ####[facility] [address] [address]Dr. Kimberly Daigle HEP B SURFACE ANTIGEN SCREEN on 01-02-2022 HBsAg Screen Negative Normal Negative [facility] Comment on above: Performed By: #### H BSANS ####[facility] [address] [address]Dr. Kimberly Daigle HEPATITIS C VIRUS AB W/ REFL EX QUANTon 01-02-2022 HCV AB <0.1 Normal 0.0-0.9 [facility] Comment on above: Performed By: #### H CVPCRR ####[facility] [address] [address]Dr. Kimberly Daigle Interpretation: Comment Normal [facility] Comment on above: Result Comment: Nega tive Not infected with HCV, unless recent infection is suspected or other evidence exists to indicate HCV infection. Performed By: #### H CVPCRR ####[facility] [address] [address]Dr. Kimberly Daigle HIV 1 AND 2 WITH REFLEXon HIV Screen 4th Generation wRfx Non-Reactive Normal Non Reactive [facility] Comment on above: Result Comment: HIV Negative HIV-1/HIV-2 antibodies and HIV-1 p24 antigen were NOT detected. There is no laboratory evidence of HIV infection. Performed By: #### H IV12 ####[facility] [address] [address]Dr. Kimberly Daigle RPR QUANTon 01-02-2022 Rapid Plasma Reagin, Quant Non-Reactive Normal NonRea<1:1 [facility] Comment on above: Result Comment: Plea se Note: This test does not meet current guidelines for screening and diagnosis of syphilis. This test is intended for following treatment response in patients being treated for syphilis infection. To screen for syphilis infection, a reflex cascade that includes both RPR and a treponema-specific assay should be utilized, such as Treponema pallidum (Syphilis) Screening [place] (135273) or Rapid Plasma Reagin (RPR) Test With Reflex to Quantitative RPR and Confirmatory Treponema pallidum Antibodies (389706). Performed By: #### G TT3P #### [facility] [address] [place] [address] Dr. Kimberly Daigle RUBELLA AB IGGon 01-02-2022 Rubella Antibodies, IgG 1.39 index Normal Immune >0.99 [facility] Comment on above: Result Comment: Non- immune <0.90 Equivocal 0.90 - 0.99 Immune >0.99 Performed By: #### R UBIGG ####[facility] [address] [address]DrSergey Daigle CBC AUTO DIFFon 01-01-2022 BASO # 0.1 103/ul Normal 0.0-0.1 [facility] Comment on above: Performed By: #### G TT3P #### [facility] [address] [address] [address] Kimberly Daigle Basophils/100 WBC (Bld) 0.7 % Normal 0.2-2.0 [facility] Comment on above: Performed By: #### G TT3P #### [facility] [address] [place] [address] Dr. Kimberly Daigle EO # 0.1 103/ul Normal 0.0-0.7 [facility] Comment on above: Performed By: #### G TT3P #### [facility] [address] [place] [address] Dr. Kimberly Daigle Eosinophils/100 WBC (Bld) 0.7 % Critically low 0.9-7.0 [facility] Comment on above: Performed By: #### G TT3P #### [facility] [address] [place] [address] Dr. Kimberly Daigle Erythrocyte distribution width (RBC) [Ratio] 12.5 % Normal 11.0-15.0 [facility] Comment on above: Performed By: #### G TT3P #### [facility] [address] [place] [address] Dr. Kimberly Daigle Hematocrit (Bld) [Volume fraction] 33.4 % Critically low 36.0-48.0 [facility] Comment on above: Performed By: #### G TT3P #### [facility] [address] [place] [address] Dr. Kimberly Daigle Hemoglobin (Bld) [Mass/Vol] 11.1 g/dL Critically low 12.0-16.0 [facility] Comment on above: Performed By: #### G TT3P #### [facility] [address] [place] [address] Dr. Kimberly Daigle IG # 0.03 10e3/ul Normal 0.00-0.03 [facility] Comment on above: Performed By: #### G TT3P #### [facility] [address] [place] [address] Dr. Kimberly Daigle IG % 0.3 % Normal 0.0-0.5 [facility] Comment on above: Performed By: #### G TT3P #### [facility] [address] [address] [address] Kimberly Daigle LYMPH # 1.8 103/ul Normal 1.2-3.8 [facility] Comment on above: Performed By: #### G TT3P #### [facility] [address] [address] [address] Kimberly Daigle Lymphocytes/100 WBC (Bld) 19.6 % Critically low 20.5-60.0 [facility] Comment on above: Performed By: #### G TT3P #### [facility] [address] [address] [address] Kimberly Daigle MANUAL DIFF REQ NO Normal [facility] Comment on above: Performed By: #### G TT3P #### [facility] [address] [place] [address] Dr. Kimberly Daigle MCH (RBC) [Entitic mass] 28.9 pg Normal 26.7-34.0 [facility] Comment on above: Performed By: #### G TT3P #### [facility] [address] [place] [address] Dr. Kimberly Daigle MCHC (RBC) [Mass/Vol] 33.2 g/dL Normal 29.9-35.2 [facility] Comment on above: Performed By: #### G TT3P #### [facility] [address] [place] [address] Dr. Kimberly Daigle MCV (RBC) [Entitic vol] 87.0 fL Normal 81.0-99.0 [facility] Comment on above: Performed By: #### G TT3P #### [facility] [address] [address] [address] Kimberly Daigle MONO # 0.4 103/ul Normal 0.3-0.8 [facility] Comment on above: Performed By: #### G TT3P #### [facility] [address] [address] [address] Kimberly Daigle Monocytes/100 WBC (Bld) 4.6 % Normal 1.7-12.0 [facility] Comment on above: Performed By: #### G TT3P #### [facility] [address] [address] [address] Kimberly Daigle NEUT # 6.7 103/ul Critically high 1.4-6.5 [facility] Comment on above: Performed By: #### G TT3P #### [facility] [address] [address] [address] Kimberly Daigle Neutrophils/100 WBC (Bld) 74.1 % Normal 43.0-75.0 [facility] Comment on above: Performed By: #### G TT3P #### [facility] [address] [address] [address] Kimberly Daigle Platelet mean volume (Bld) [Entitic vol] 9.0 fL Critically low 9.5-13.5 [facility] Comment on above: Performed By: #### G TT3P #### [facility] [address] [place] [address] Dr. Kimberly Daigle PLT 316 103/ul Normal 150-450 [facility] Comment on above: Performed By: #### G TT3P #### [facility] [address] [place] [address] Dr. Kimberly Daigle RBC 3.84 106/ul Critically low 4.20-5.40 [facility] Comment on above: Performed By: #### G TT3P #### [facility] [address] [address] [address] Kimberly Daigle WBC 9.0 103/ul Normal 4.0-11.0 [facility] Comment on above: Performed By: #### G TT3P #### [facility] [address] [place] [address] Dr. Kimberly Daigle CULTURE URINEon 01-01-2022 CULTURE URINE Culture Observations : No growth Normal [facility] Comment on above: Performed By: #### U RCX #### [facility] [address] [place] [address] Dr. Kimberly Daigle GLYCOHEMOGLOBIN A1Con 2021 ADA RECOMMENDATION SEE BELOW Normal [facility] Comment on above: Result Comment: ADA RECOMMENDED LIMIT 4.0 - 6.0 ADA THERAPEUTIC TARGET < 7.0 ACTION SUGGESTED > 7.0 Performed By: #### G TT3P #### [facility] [address] [address] [address] Kimberly Daigle Glucose [Mass/Vol] 105 mg/dL Normal [facility] Comment on above: Performed By: #### G TT3P #### [facility] [address] [address] [address] Kimberly Daigle HbA1c (Bld) [Mass fraction] 5.3 % Normal 4.5-6.2 [facility] Comment on above: Performed By: #### G TT3P #### [facility] [address] [address] [address] Kimberly Daigle TYPE AND SCREENon 01-01-2022 TYPE AND SCREEN Negative Normal [facility] Comment on above: Performed By: #### T NS #### [facility] [address] [address] [address] Kimberly Daigle US PREG TVon 12-30-2021 US PREG TV EXAMINATION: US PREG TV HISTORY: Missed period COMPARISON: 08/20/2021 FINDINGS: Transvaginal images Garcia intrauterine gestation Gestational sac: Normal morphology, 3.65 cm, 8 weeks 6 days CRL: 2.21 cm, 8 weeks 6 days Yolk sac: 0.31 cm Heart rate: 176 bpm Cervix: Closed, 4.6 cm The uterus is normal in appearance. Retroverted, retroflexed The ovaries are normal in appearance Clinical age: 10 weeks 4 days Clinical JON: 07/24/2022 Ultrasound age 8 weeks 6 days Ultrasound JON: 08/05/2022 IMPRESSION: Viable garcia intrauterine gestation measuring 8 weeks 6 days Electronically authenticated by: DINA ONOFRE Date: 2021-12-30 16:45 Normal [facility] PREG QUANT HCGon 11-27-2021 HCG QUANT 93 mIU/mL Normal [facility] Comment on above: Performed By: #### G TT3P #### [facility] [address] [address] [address] Kimberly Daigle HCG RANGE SEE BELOW Normal [facility] Comment on above: Result Comment: 5-50 0-1 WEEK 40-300 1-2 WEEKS 100-1,000 2-3 WEEKS 500-6,000 3-4 WEEKS 5,000-200,000 1-2 MONTHS 10,000-100,000 2-3 MONTHS 3,000-50,000 2ND TRIMESTER 1,000-50,000 3RD TRIMESTER Performed By: #### G TT3P #### [facility] [address] [address] [address] Kimberly Daigle PREG QUANT HCGon 11-25-2021 HCG QUANT 32 mIU/mL [facility] Comment on above: Performed By: #### P REGQNT #### [facility] [address] [address] [address] Kimberly Daigle HCG RANGE SEE BELOW [facility] Comment on above: Result Comment: 5-50 0-1 WEEK 40-300 1-2 WEEKS 100-1,000 2-3 WEEKS 500-6,000 3-4 WEEKS 5,000-200,000 1-2 MONTHS 10,000-100,000 2-3 MONTHS 3,000-50,000 2ND TRIMESTER 1,000-50,000 3RD TRIMESTER Performed By: #### P REGQNT #### [facility] [address] [address] [address] Kimberly Daigle PAP ACOG PANEL 2: 21 to 29on 11-02-2021 . . Normal [facility] Comment on above: Performed By: #### 4 [id number] ####[facility] [address] [address]Dr. Kimberly Daigle Age Gdln ACOG Testing - [facility] Comment on above: Performed By: #### [id number] ####[facility] [address] [address]Dr. Kimberly Daigle DIAGNOSIS: Comment [facility] Comment on above: Result Comment: NEGA TIVE FOR INTRAEPITHELIAL LESION OR MALIGNANCY. Performed By: #### [id number] ####[facility] [address] [address]Dr. Kimberly Daigle Methodology: Comment [facility] Comment on above: Result Comment: This liquid based ThinPrep(R) pap test was screened with the use of an image guided system. Performed By: #### [id number] ####[facility] [address] [id number]. Kimberly Daigle Note: Comment Normal [facility] Comment on above: Result Comment: The Pap smear is a screening test designed to aid in the detection of premalignant and malignant conditions of the uterine cervix. It is not a diagnostic procedure and should not be used as the sole means of detecting cervical cancer. Both false-positive and false-negative reports do occur. . Performed By: #### [id number] ####[facility] [address] [id number]. Kimberly Daigle Performed by: Comment Normal [facility] Comment on above: Result Comment: Shari Lazo Radiation Oncology Therapist (ASCP) Performed By: #### [id number] ####[facility] [address] [place], [place] [id number]. Kimberly Daigle Reflex Criteria: Comment Normal [facility] Comment on above: Result Comment: The HPV DNA reflex criteria were not met with this specimen result therefore, no HPV testing was performed. . Performed By: #### 4 [id number] ####[facility] [address] [id number]. Kimberly Daigle Specimen adequacy: Comment Normal [facility] Comment on above: Result Comment: Sati sfactory for evaluation. No endocervical component is identified. Performed By: #### 4 [id number] ####[facility] [address] [place], [place] [id number]. Kimberly Daigle COVID-19 Lab [facility] 06-10-19 21 COVID-19 Lab [place] Not Detected Normal Not Detected [facility] Comment on above: Order Comment: CALL ONLY IF POS TO [phone] Healthcare Worker?: Y Result Comment: This nucleic acid amplification test was developed and its performance characteristics determined by [employer]. Nucleic acid amplification tests include RT- PCR and TMA. This test has not been FDA cleared or approved. This test has been authorized by FDA under an Emergency Use Authorization (EUA). This test is only authorized for the duration of time the declaration that circumstances exist justifying the authorization of the emergency use of in vitro diagnostic tests for detection of SARS-CoV-2 virus and/or diagnosis of COVID-19 infection under section 564(b)(1) of the Act, 21 U.S.C. 360bbb-3(b) (1), unless the authorization is terminated or revoked sooner. When diagnostic testing is negative, the possibility of a false negative result should be considered in the context of a patient's recent exposures and the presence of clinical signs and symptoms consistent with COVID-19. An individual without symptoms of COVID-19 and who is not shedding SARS-CoV-2 virus would expect to have a negative (not detected) result in this assay. PERFORMED BY: [address] [place] [address] PATHOLOGIST DECORATING INSPECTOR MARIO HAWKINS M.D. Performed By: #### C ORONAVIRUS #### [facility] , Vital Signs Date Time Vital Sign Value Performing Clinician Facility 01-07-2025 14:06-0400 Body mass index (BMI) [Ratio] 36.63 kg/m2 Toño Juventino DO Work Phone: [facility] 01-07-2025 14:06-0400 Body weight 93.8 kg Toño Juventino DO Work Phone: [facility] [facility] 01[facility]07-2025 14:06-0400 Diastolic blood pressure 78 mm[Hg] Toño Juventino DO Work Phone: [facility] 01-07-2025 14:06-0400 Systolic blood pressure 120 mm[Hg] Toño Juventino DO Work Phone: [facility] 12-27-2022 12:14-0400 Blood Pressure Location Doug0xdata [facility] 12-27-2022 12:14-0400 Body temperature 98.06 [degF] Doug Spasic [facility] 12-27-2022 12:14-0400 Diastolic blood pressure 80 mm[Hg] Doug SpasiFood Reporter [facility] 12-27-2022 12:14-0400 Heart rate 66 /min Doug Spasic [facility] 12-27-2022 12:14-0400 SaO2% (BldA) [Mass fraction] 98 % Doug Spasic [facility] 12-27-2022 12:14-0400 Systolic blood pressure 122 mm[Hg] Doug Spasic [facility] 03-18-2022 15:06-0400 Body weight 95.256 kg LUCERO KHANNA . [facility] Comment on above: Performed By: #### AFPMAT ####Fadi Francois [facility]sp[facility] [id number] [place], [place] [address]Dr. Ana Mabelardo Daigle 11-18-2021 16:00-0400 Body height 160.02 cm Paul Thornton Other [facility] Other 11-18-2021 16:00-0400 Body mass index (BMI) [Ratio] 37.73 kg/m2 Paul Thornton Other [facility] Other 11-18-2021 16:00-0400 Body weight 96.62 kg Paul Thornton Other [facility] Other Encounters Encounter Date Encounter Type Care Provider Facility Start: 01-07-2025 End: 01-07-2025 Bamboo flowsheet Toño Juventino DO Work Phone: [facility] Start: 01-07-2025 End: 01-07-2025 Bamboo flowsheet Toño Juventino DO Work Phone: [facility] Start: 01-07-2025 End: 01-07-2025 Patient encounter procedure Toño Juventino DO Work Phone: [facility] Work Phone: Start: 01-07-2025 End: 01-07-2025 Periodic preventive med est patient 18-39 yrs Toño Jauregui DO Work Phone: [facility] Comment on above: Well woman exam with routine gynecological exam Start: 10-07-2024 End: 10-07-2024 ambulatory MANAGER GENERAL Juani L Cisco Facility:[facility] Start: 09-25-2024 End: 09-25-2024 ambulatory MANAGER GENERAL Juani L Cisco Facility:[facility] Start: 04-03-2024 End: 04-03-2024 ambulatory MANAGER GENERAL Juani L Cisco Facility:[facility] Start: 01-04-2024 End: 01-04-2024 ambulatory LUCERO KHANNA Not Available Start: 01-04-2024 End: 01-12-2024 Clinisync Result Encounter Lucero COWAN Work Phone: [facility] Unsolicited Start: 01-04-2024 End: 01-12-2024 Clinisync Result Encounter Lucero COWAN Work Phone: [facility] Unsolicited Start: 01-04-2024 End: 01-04-2024 ambulatory MANAGER GENERAL Juani L Cisco Facility:[facility] Start: 12-27-2022 End: 12-27-2022 Patient encounter procedure Doug Curran. Kellysic [facility] Start: 07-27-2022 ambulatory LUCERO KHANNA . Facility:H 1 Start: 07-26-[address] DMITRIY HOPKINS . Facil ity:[facility]1 Start: 07-20-2022 End: 07-22-2022 Evaluation and management of inpatient DR DMITRIY HOPKINS . Facility:[facility] Start: 07-19-[address] DMITRIY HOPKINS . Facil ity:[facility]1 Start: 07-15-2022 End: 07-15-[address] DMITRIY HOPKINS . Facility:[facility] Start: 07-12-2022 End: 07-12-[address] TOÑO JAUREGUI . Facility:[facility] Start: 07-11-2022 End: 07-11-2022 ambulatory LUCERO KHANNA . Facility:[facility] Start: 07-08-2022 End: 07-08-2022 ambulatory ROSA MORA Facility:[facility] Start: 07-05-2022 End: 07-05-[address] DIMTRIY HOPKINS . Facility:[facility] Start: 06-29-2022 End: 06-30-2022 ambulatory LUCERO KHANNA . Facility:[facility] Start: 06-28-2022 End: 06-28-[address] DMITRIY HOPKINS . Facility:[facility] Start: 05-24-2022 End: 05-25-[address] TOÑO JAUREGUI . Facility:[facility] Start: 05-07-2022 End: 05-08-[address] TOÑO JAUREGUI . Facility:[facility] Start: 04-21-2022 End: 04-22-[address] TOÑO JAUREGUI . Facility:[facility] Start: 03-18-2022 End: 03-19-[address] TOÑO JAUREGUI . Facility:[facility] Start: 03-14-2022 End: 03-15-[address] TOÑO JAUREGUI . Facility:[facility] Start: 02-26-2022 End: 02-27-[address] TOÑO JAUREGUI . Facility:[facility] Start: 02-19-2022 End: 02-20-[address] TOÑO JAUREGUI . Facility:[facility] Start: 02-08-2022 End: 02-08-[address] DMITRIY HOPKINS . Facility:[facility] Start: 01-18-2022 End: 01-19-[address] DMITRIY HOPKINS . Facility:[facility] Start: 01-01-2022 End: 01-02-[address] DMITRIY HOPKINS . Facility:[facility] Start: 12-30-2021 End: 12-31-[address] DMITRIY HOPKINS . Facility:[facility] Start: 11-30-2021 End: 11-30-2021 ambulatory Paul Thornton Other [facility] Other Start: 11-30-2021 Telephone encounter [facility] Start: 11-25-2021 End: 12-17-[address] DMITRIY HOPKINS . Facility: Start: 11-18-2021 End: 11-18-2021 ambulatory Paul Thornton Other [facility] [employer] Other Start: 11-18-2021 [facility] visit new patient Paul Thornton [facility] Start: 10-28-2021 End: 10-28-[address] DMITRIY HOPKINS . Facility: Procedures Date Procedure Procedure Detail Performing Clinician Start: 01-04-2024 IGP,APTIMA HPV,AGE GDLN Lucero Khanna PA Work Phone: Start: 07-20-2022 Extraction of Produc ts of Conception, Low Cervical, Open Approach LUCERO KHANNA . Start: 07-20-2022 Resection of Bilater al Fallopian Tubes, Open Approach LUCERO KHANNA . Plan of Treatment Date Care Activity Detail Author Start: 01-07-2025 End: 01-07-2025 Patient encounter procedure [facility] Comment on above: Arrived Cytology Cervical or vaginal smear or scraping study Pap Smear Pathology and Cytology Routine Well woman exam with routine gynecological exam Ordered: 01/07/2025 [facility] Work Phone: Comment on above: Ordered: 01/07/2025 Human papilloma viru s DNA [Presence] in Unspecified specimen by Probe with amplification HPV DNA probe, amplified Microbiology Routine Well woman exam with routine gynecological exam Ordered: 01/07/2025 [facility] Comment on above: Ordered: 01/07/2025 Immunizations Immunization Date Immunization Notes Care Provider Mayela thomas 03-24-2022 influenza virus vaccine, unspecified formulation Nuubo [facility] NEGATED: Highlighted row has not occurred!12-27-2022 SARS-CoV-2 mRNA (tozinameran 5y-11y) vaccine Nuubo [facility] Payers Date Payer Category Payer Unknown [id number] 2023 Private Health Insurance [id number] 2023 Private Health Insurance [id number] 1992 Unknown [id number] 2.16.84 0.1.881056.3.579.2.593 1992 Unknown [id number] 2.16.84 0.1.597249.3.579.2.593 1992 Unknown [id number] 2.16.84 0.1.089653.3.579.2.593 1992 Unknown [id number] 2.16.84 0.1.444785.3.579.2.593 1992 Unknown [id number] 2.16.84 0.1.266077.3.579.2.593 1992 Unknown [id number] 2.16.84 0.1.718296.3.579.2.593 1992 Unknown [id number] 2.16.84 0.1.023846.3.579.2.593 1992 Unknown [id number] 2.16.84 0.1.911759.3.579.2.593 1992 Unknown [id number] 2.16.84 0.1.381029.3.579.2.593 1992 Unknown [id number] 2.16.84 0.1.931577.3.579.2.593 1992 Unknown [id number] 2.16.84 0.1.485033.3.579.2.593 1992 Unknown [id number] 2.16.84 0.1.093121.3.579.2.593 1992 Unknown [id number] 2.16.84 0.1.269314.3.579.2.593 1992 Unknown [id number] 2.16.84 0.1.452662.3.579.2.593 1992 Unknown [id number] 2.16.84 0.1.176332.3.579.2.593 1992 Unknown [id number] 2.16.84 0.1.488244.3.579.2.593 1992 Unknown [id number] 2.16.84 0.1.139643.3.579.2.593 1992 Unknown [id number] 2.16.84 0.1.049764.3.579.2.593 1992 Unknown [id number] 2.16.84 0.1.434907.3.579.2.593 1992 Unknown [id number] 2.16.84 0.1.650801.3.579.2.593 1992 Unknown [id number] 2.16.84 0.1.484823.3.579.2.593 1992 Unknown [id number] 2.16.84 0.1.636820.3.579.2.593 1992 Unknown [id number] 2.16.84 0.1.682329.3.579.2.593 1992 Unknown [id number] 2.16.84 0.1.717810.3.579.2.1259 1992 Unknown [id number] 2.16.8 40.1.582454.3.579.2.727 1992 Unknown [id number] 2.16.8 40.1.190100.3.579.2.727 1992 Unknown [id number] 2.16.8 40.1.613631.3.579.2.727 1992 Unknown [id number] 2.16.8 40.1.659110.3.579.2.727 1992 Unknown [id number] 2.16.8 40.1.702337.3.579.2.727 1959 Self-pay [id number] 1959 Self-pay 1959 Unknown [id number] 2. 16.840.1.920376.19 1959 Unknown [id number] 2.16. 840.1.969574.19 1959 Unknown [id number] Unknown [id number] 2.16.84 0.1.107530.3.579.2.593 Social History Date Type Detail Facility Start: 02-01-2023 End: 01-07-2025 Sex Assigned At [facility] Start: 11-28-2022 End: 12-27-2022 Tobacco smoking status Never smoked tobacco (finding) [facility] Tobacco smoking status Never Fishe [facility] Start: 11-28-2022 Tobacco use and exposure Smokeless tobacco non-user [facility] Start: 01-04-2024 End: 01-07-2025 Alcoholic beverage intake Ex-drinker (finding) [facility] Start: 02-01-2023 End: 01-07-2025 History of Social function [facility] Start: 11-28-2022 Alcohol Comment occasional alcohol u se [facility] Start: 1990 Sex assigned at Not on file [facility] Functional Status Date Assessment Result Facility 12-27-2022 Functional Status N/A [facility] Clinical Notes 11-18-2021 to 01-07-2025 Neelam Vázquez LPN - 01/07/2025 2:00 PM EDT Note Date & Type Note Facility 01-07-2025 History of Presen t illness Narrative Reason for Appointment: Patient ID: Kal Triana is a 34 y.o. female who [...] nursing note reviewed. Exam conducted with a manager advanced present. Vitals: Estimated body mass index is 36.63 kg/m as calculated from the following: Height as [...] them. Patient can also view results via [employer]. I reinforced importance of condom use for [...] by Neelam Vázquez LPN on behalf of: Toño Jauregui DO documented in this encounter [facility] 12-27-2022 Hospital Discharg e instructions Patient Education 12/27/2022 12:38:58 BMI for Adults BMI for Adults What is BMI? Body mass index (BMI) is a number that is calculated from a person's weight and height. BMI can help estimate how much of a person's weight is composed of fat. BMI does not measure body fat directly. Rather, it is an alternative to procedures that directly measure body fat, which can be difficult and expensive. BMI can help identify people who may be at higher risk for certain medical problems. What are BMI measurements used for? BMI is used as a screening tool to identify possible weight problems. It helps determine whether a person is obese, overweight, a healthy weight, or underweight. BMI is useful for: Identifying a weight problem that may be related to a medical condition or may increase the risk for medical problems. Promoting changes, such as changes in diet and exercise, to help reach a healthy weight. BMI screening can be repeated to see if these changes are working. How is BMI calculated? BMI involves measuring your weight in relation to your height. Both height and weight are measured, and the BMI is calculated from those numbers. This can be done either in [place] ([place] or metric measurements. Note that charts and online BMI calculators are available to help you find your BMI quickly and easily without having to do these calculations yourself. To calculate your BMI in [place] ([place] measurements: 1.Measure your weight in pounds (lb). 2.Multiply the number of pounds by 703. For example, for a person who weighs 180 lb, multiply that number by 703, which equals 126,540. 3.Measure your height in inches. Then multiply that number by itself to get a measurement called inches squared. For example, for a person who is 70 inches tall, the inches squared measurement is 70 inches x 70 inches, which equals 4,900 inches squared. 4.Divide the total from step 2 (number of lb x 703) by the total from step 3 (inches squared): 126,540 4,900 = 25.8. This is your BMI. To calculate your BMI in metric measurements: 1.Measure your weight in kilograms (kg). 2.Measure your height in meters (m). Then multiply that number by itself to get a measurement called meters squared. For example, for a person who is 1.75 m tall, the meters squared measurement is 1.75 m x 1.75 m, which is equal to 3.1 meters squared. 3.Divide the number of kilograms (your weight) by the meters squared number. In this example: 70 3.1 = 22.6. This is your BMI. What do the results mean? BMI charts are used to identify whether you are underweight, normal weight, overweight, or obese. The following guidelines will be used: Underweight: BMI less than 18.5. Normal weight: BMI between 18.5 and 24.9. Overweight: BMI between 25 and 29.9. Obese: BMI of 30 or above. Keep these notes in mind: Weight includes both fat and muscle, so someone with a muscular build, such as an athlete, may have a BMI that is higher than 24.9. In cases like these, BMI is not an accurate measure of body fat. To determine if excess body fat is the cause of a BMI of 25 or higher, further assessments may need to be done by a health care provider. BMI is usually interpreted in the same way for men and women. Where to find more information For more information about BMI, including tools to quickly calculate your BMI, go to these websites: Centers for Disease Control and Prevention: www.cdc.gov [place] Heart Association: www.heart.org National Heart, Lung, and Blood [place]: www.nhlbi.nih.gov Summary Body mass index (BMI) is a number that is calculated from a person's weight and height. BMI may help estimate how much of a person's weight is composed of fat. BMI can help identify those who may be at higher risk for certain medical problems. BMI can be measured using Malaysian measurements or metric measurements. BMI charts are used to identify whether you are underweight, normal weight, overweight, or obese. This information is not intended to replace advice given to you by your health care provider. Make sure you discuss any questions you have with your health care provider. Document Revised: 01/29/2020 Document Reviewed: 12/06/2019 [employer] Patient Education 2022 [employer]NAPPIN. 12/27/2022 12:38:55 Acute Bronchitis, Adult, Ifzj-kg-Tech Acute Bronchitis, Adult Acute bronchitis is when air tubes in the lungs (bronchi) suddenly get swollen. The condition can make it hard for you to breathe. In adults, acute bronchitis usually goes away within 2 weeks. A cough caused by bronchitis may last up to 3 weeks. Smoking, allergies, and asthma can make the condition worse. What are the causes? Germs that cause cold and flu (viruses). The most common cause of this condition is the virus that causes the common cold. Bacteria. Substances that bother (irritate) the lungs, including: ?Smoke from cigarettes and other types of tobacco. ?Dust and pollen. ?Fumes from chemicals, gases, or burned fuel. ?Indoor or outdoor air pollution. What increases the risk? A weak body's defense system. This is also called the immune system. Any condition that affects your lungs and breathing, such as asthma. What are the signs or symptoms? A cough. Coughing up clear, yellow, or green mucus. Making high-pitched whistling sounds when you breathe, most often when you breathe out (wheezing). Runny or stuffy nose. Having too much mucus in your lungs (chest congestion). Shortness of breath. Body aches. A sore throat. How is this treated? Acute bronchitis may go away over time without treatment. Your doctor may tell you to: Drink more fluids. This will help thin your mucus so it is easier to cough up. Use a device that gets medicine into your lungs (inhaler). Use a vaporizer or a humidifier. These are machines that add water to the air. This helps with coughing and poor breathing. Take a medicine that thins mucus and helps clear it from your lungs. Take a medicine that prevents or stops coughing. It is not common to take an antibiotic medicine for this condition. Follow these instructions at home: Take jrnx-rdv-zqktkap and prescription medicines only as told by your doctor. Use an inhaler, vaporizer, or humidifier as told by your doctor. Take two teaspoons (10 mL) of honey at bedtime. This helps lessen your coughing at night. Drink enough fluid to keep your pee (urine) pale yellow. Do not smoke or use any products that contain nicotine or tobacco. If you need help quitting, ask your doctor. Get a lot of rest. Return to your normal activities when your doctor says that it is safe. Keep all follow-up visits. How is this prevented? Wash your hands often with soap and water for at least 20 seconds. If you cannot use soap and water, use hand color straining bag washer. Avoid contact with people who have cold symptoms. Try not to touch your mouth, nose, or eyes with your hands. Avoid breathing in smoke or chemical fumes. Make sure to get the flu shot every year. Contact a doctor if: Your symptoms do not get better in 2 weeks. You have trouble coughing up the mucus. Your cough keeps you awake at night. You have a fever. Get help right away if: You cough up blood. You have chest pain. You have very bad shortness of breath. You faint or keep feeling like you are going to faint. You have a very bad headache. Your fever or chills get worse. These symptoms may be an emergency. Get help right away. Call your local emergency services (911 in the [place] Do not wait to see if the symptoms will go away. Do not drive yourself to the hospital. Summary Acute bronchitis is when air tubes in the lungs (bronchi) suddenly get swollen. In adults, acute bronchitis usually goes away within 2 weeks. Drink more fluids. This will help thin your mucus so it is easier to cough up. Take dmuj-lyx-pvxybhw and prescription medicines only as told by your doctor. Contact a doctor if your symptoms do not improve after 2 weeks of treatment. This information is not intended to replace advice given to you by your health care provider. Make sure you discuss any questions you have with your health care provider. Document Revised: 09/08/2021 Document Reviewed: 09/08/2021 [employer] Patient Education 2022 [employer] Follow Up Care 12/27/2022 11:36:12 With:Juani Guerrier FAM, GILBERT Address:Unknown When: Unknown [facility] 07-20-2022 Note DISCHARGE SUMMARY NOTE DATE: 07/29/2022 PRIMARY DIAGNOSES: 1. Intrauterine at 38+ weeks. 2. Poor compliance with gestational diabetes. 3. Patient not taking sugars regularly; patient not bringing GlucoLog into the office. 4. Patient desires permanent sterilization. 5. Multiparity. PROCEDURE: Repeat low transverse section with bilateral salpingectomy. HOSPITAL COURSE: As expected. Please see chart for full details. LABORATORY DATA: Please see chart. COMPLICATIONS: None. DISCHARGE CONDITION: Stable. CONSULTATION: Anesthesia. DISCHARGE INSTRUCTIONS: 1. Diet: Regular. 2. Medications: a. Percocet 5/325 one to two p.o. every 4-6 hours p.r.n. pain. b. Motrin 800 one p.o. every 8 hours p.r.n. pain. 3. Followup in one week. Restrictions: Pelvic rest for 6 weeks. No heavy lifting. May drive when pain free and no longer on narcotics. [facility] 07-20-2022 Note OPERATIVE NOTE OPERATION DATE: 07/20/2022 PROCEDURE: Repeat low transverse section with bilateral salpingectomy. PREOPERATIVE DIAGNOSIS: 1. Intrauterine at 38+ weeks, poor compliance with gestational diabetes. Patient not taking sugars regularly. Patient not bringing GlucoLog into office. 2. Desire permanent sterilization. 3. Multiparity. POSTOPERATIVE DIAGNOSIS: 1. Intrauterine at 38+ weeks, poor compliance with gestational diabetes. Patient not taking sugars regularly. Patient not bringing GlucoLog into office. 2. Desire permanent sterilization. 3. Multiparity. ANESTHESIA: Spinal with Duramorph SURGEON: Toño Jauregui D.O. TIMBER PACKER: Raina Lorena, STOVE MECHANIC URINE OUTPUT: Yellow and clear. BLOOD LOSS: 600 mL. SPECIMEN: Placenta. FINDINGS: Viable female. Apgars 8 at 1, 9 at 5. Weight unknown at this time. PROCEDURE: Patient was taken back to the Operating Room where she was given a spinal anesthesia with Duramorph without difficulty. She was prepped and draped in the normal sterile fashion. A Pfannenstiel skin incision was then made 2 cm above the symphysis pubis and carried down to underlying rectus fascia using a Bovie. The fascia was incised in the midline and extended laterally using Ramos scissors. Two Jayjay clamps were placed on the superior aspect of the fascia and dissected off the underlying rectus muscles. The same was performed on the inferior aspect as well. The muscles were then in the midline. Peritoneum was identified and entered bluntly. The peritoneum was then extended superiorly and inferiorly with good visualization of the bladder. The bladder blade was inserted. Vesicouterine peritoneum was identified, tented up, and entered with Metzenbaum scissors. A bladder flap was then created digitally. The bladder blade was reinserted. A low transverse incision was made on the patient's uterus and extended laterally digitally. The was then delivered atraumatically after the bladder blade was removed in the cephalic position. The cord was clamped and cut. Cord blood was obtained. The was handed off to awaiting team. The patient's placenta was spontaneously delivered. The uterus was then exteriorized. The uterus was cleared of all clots and debris. The bladder blade was reinserted. The patient's uterine incision was closed using #0 Vicryl in a running lock fashion. Excellent hemostasis was assured. The uterus was then returned to the patient's abdomen. The patient's abdomen was copiously irrigated using warm saline. Peritoneal gutters were cleared of all clots and debris. Again excellent hemostasis was assured. The tubes were identified, grasped with a Lamont, the LigaSure apparatus was used to come across the mesosalpinx and the tube removed in its entirety. Excellent hemostasis was assured. The patient's peritoneum was closed using 3-0 Vicryl in a running fashion. The patient's fascia was closed using #0 Vicryl in a running fashion. The patient's skin was closed using 4-0 Vicryl subcuticularly. The patient tolerated the procedure well. Sponge, lap, and needle counts were correct x2. The patient was taken to the Recovery Room in stable condition. [facility] 11-18-2021 Evaluation note Encounter Date Diagnosis Assessment Notes Oct, Fatty liver (ICD-10 - K76.0) Oct, Nausea (ICD-10 - R11.0) Oct, Abdominal pain (ICD-10 - R10.9) [facility] [employer] Other Evaluation + Plan note Future Appointments Appointment Date:01/10/2023 03:00:00 PM Scheduled Provider:Juani Guerrier Location:[facility] Appointment Type:[facility] Evaluation [facility]No [facility]No[facility] Other Evaluation note* Diagnosis Well woman exam with routine gynecological exam Routine gynecological examination documented [facility] Narr[facility] No data available for this section [facility] Progress note No data available for this section [facility] Reason for visit NarrativePATIENT HERE AT THE REQUEST OF DR. HOPKINS FOR EVALUATION & TREATMENT OF NAUSEA, ABDOMINAL PAIN,AND FATTY LIVERMult[facility]are [facility] Other Summary Purpose Family History No Family History Records FoundNo Family History Records FoundNo Family History Records FoundNo Family History Records Found Advance Directives No Advanced Directives Records FoundNo Advanced Directives Records FoundNo Advanced Directives Records FoundNo Advanced Directives Records Found Additional Source Comments INFORMATION SOURCE (unrecogn ized section and content) DATE CREATED AUTHOR 06/15/[address] [facility] DATE CREATED AUTHOR AUTHOR'S ORGANIZ ATION 10/05/2022 [facility] DATE CREATED AUTHOR AUTHOR'S ORGANIZ ATION 01/06/[address] [facility] EPIC DATE CREATED AUTHOR AUTHOR'S ORGANIZ ATION 10/09/2024 [facility] REASON FOR VISIT (unrecogniz ed section and content) Reason Comments [facility] Visit Patient Care team informatio n (unrecognized section and content) Personnel Name: Juani Guerrier Address: Address: [address] [place] [address]- FOR RECORDS PERTAINING TO PATIENTS WHO ARE OR HAVE BEEN ENROLLED IN A CHEMICAL DEPENDENCY/SUBSTANCEABUSE PROGRAM, SOME INFORMATION MAY BE OMITTED. This clinical summary was aggregated from multiple sources. Caution should be exercised in using it in the provision of clinical care. This summary normalizes information from multiple sources, and as a consequence, information in this document may materially change the coding, format and clinical context of patient data. In addition, data may be omitted in some cases. CLINICAL DECISIONS SHOULD BE BASED ON THE PRIMARY CLINICAL RECORDS. [facility] [employer] [facility]. provides no warranty or guarantee of the accuracy or completeness of information in this document.
[2025-01-10 14:08] LABS: Age Gdln ACOG Testing Note (.); IGP, Aptima HPV, rfx 16/18,45 Note (.)
== END 2025-01-07 19:09 | disposition home or self-care (01) ==
LOC: LAB 19:08
PROVIDERS: Visit Provider Obstetrics & Gynecology
DX: Z01.419 Encounter for gynecological examination (general) (routine) without abnormal findings (principal)
CPT/HCPCS: 87624; 88175